=== PATIENT | female | born 1965 | race Caucasian/White ===

== ENCOUNTER 2022-11-11 12:59 | Inpatient (IN) | payer OTHER, SELFPAY ==
--- NOTE | ~2022-11-11 | XR_ITS ---
EXAMINATION: XR chest 1V portable 11/12/2022 10:32 INDICATION: Preop PROCEDURE: AP portable chest COMPARISON: No prior studies for comparison. FINDINGS: The lungs are clear. The cardiomediastinal silhouette is within normal limits. There are no pleural effusions. There is no pneumothorax suspected. IMPRESSION: 1: NO ACUTE CARDIOPULMONARY DISEASE. Reviewed, dictated and finalized at location B.
--- NOTE | ~2022-11-11 | US_ITS ---
EXAMINATION: US abdomen limited DATE: 11/11/2022 15:05 INDICATION: Right upper quadrant pain TECHNIQUE: Multiple grayscale and Doppler ultrasound images of the abdomen were obtained. COMPARISON: 06/14/2014 FINDINGS: The head and body of the pancreas are normal. The pancreatic tail is obscured by bowel gas. The liver is normal with normal echogenicity and echotexture. No surface nodularity. Normal hepatope brenda flow in the main portal vein. A stone is present in the nondistended gallbladder. The normal comm on bile duct measures 3 mm. There was no sonographic Silvestre sign. IMPRESSION: 1. Cholelithiasis without additional findings of cholecystitis. Reviewed, dictated and finalized at location F.
--- NOTE | ~2022-11-11 | CT_ITS ---
EXAMINATION: CT abdomen pelvis wo con DATE: 11/11/2022 15:28 INDICATION: Nausea and vomiting, abnormal liver function tests TECHNIQUE: Computed tomography (CT) of the abdomen and pelvis was performed without intravenous contr ast. The dose-length product (DLP) was 1404.56 mGy-cm. Automated exposure control and iterative recon struction technique were employed. COMPARISON: 09/13/2014 FINDINGS: Minimal dependent atelectasis is present in the lung bases. The heart size is normal. Cysts of the liver measure up to 8 mm. The spleen, pancreas, and adrenal glands are normal. There is wall thickening of the gallbladder with pericholecystic inflammatory change. There is been interval develo pment of a lobular contour of the right kidney with multiple areas of scarring identified. There is a 2 mm nonobstructing stone of the right kidney lower pole. The left kidney is unremarkable. No pathol ogically enlarged abdominal or pelvic lymph nodes are identified. The appendix is normal. There is an umbilical hernia containing fat. IMPRESSION: 1. CT findings consistent with acute cholecystitis. Reviewed, dictated and finalized at location F.
[2022-11-11 13:04] VITALS: BP 108/60; PULSE 104; RESP 18; TEMP 36.4; O2SAT 97
[2022-11-11 13:38] LABS: Hematocrit 38.8 % (37.0-47.0); Hemoglobin 12.8 g/dL (12.0-15.0); Mean Corpuscular Volume 87.8 fl (80-100); Mean Platelet Volume 11.3 fl (7.4-10.4); Platelet Count Result 222 k/mm3 (150-375); Red Blood Count 4.42 M/mm3 (4.2-5.4); Red Cell Distribution Width 13.4 % (11.5-14.5); White Blood Count 20.3 K/mm3 (4.5-10.0)
[2022-11-11 13:48] LABS: Band Neutrophils Percent 37 % (0-6); Lymphocytes Absolute Manual 1.01 K/mm3 (1.1-4.5); Lymphocytes Percent Manual 5 % (18-44); Monocytes Absolute Manual 1.01 K/mm3 (0.1-0.90); Monocytes Percent Manual 5 % (3-9); Neutrophils Absolute Manual 18.27 K/mm3 (1.7-7.2); Neutrophils Percent Manual 53 % (46-73); Total Cells Counted 100
[2022-11-11 13:49] LABS: Alanine Aminotransferase 303 U/L (6-35); Albumin Level 3.8 g/dL (3.5-5.1); Alkaline Phosphatase 150 U/L (38-126); Anion Gap 11 mmol/L (8-16); Aspartate Amino Transferase 140 U/L (14-36); Bilirubin,Total 6.7 mg/dL (0.2-1.3); Blood Urea Nitrogen 54 mg/dL (7-17); Calcium 8.2 mg/dL (8.4-10.2); Carbon Dioxide 23 mmol/L (22-30); Chloride 93 mmol/L (98-107); Estimated CRCL calculation 19 ml/min; Estimated Glomerular Filt Rate 11; Glucose 198 mg/dL (65-110); Lipase 31 U/L (23-300); Platelet Estimate Adequate (Adequate); Sodium 127 mmol/L (137-145)
[2022-11-11 13:50] LABS: Burr Cells 1+ (NORMAL); Schistocytes None Seen (NORMAL)
[2022-11-11 14:24] LABS: Appearance Urine Turbid (Clear); Bacteria Urine 4+ /hpf; Bilirubin Urine 3+ (Negative); Blood Urine 2+ (Negative); Color Urine Dark Yellow (Yellow); Glucose Urine UA Negative (Negative); Ketones Urine Negative (Negative); Leukocyte Esterase Ur 3+ LEU/UL (Negative); Need Manual Microscopic Reviewed; Nitrate Urine Positive (Negative); Protein Urine 2+ mg/dL (Negative); RBC Urine 21-50 /hpf (0-2); Specific Grav Ur 1.018 (1.001-1.035); Squamous Epithelial Cell Urine Many /hpf (Few); WBC Urine >100 /hpf
[2022-11-11 14:26] LABS: Add Urine Microscopic? YES
--- NOTE | 2022-11-11 14:28 | ED.NAVMDI ---
HPI - Nausea/Vomiting/Diarrhea General Chief complaint: Nausea/Vomiting/Diarrhea Stated complaint: vomiting x 5 days Time Seen by Provider: 11/11/22 13:20 Source: patient Mode of arrival: ambulatory Limitations: no limitations History of Present Illness HPI Narrative: Patient is a 56-year-old female who presents to the ED with report of nausea and vomiting. Patient reports nausea and vomiting began on Saturday last week. Denies any bad food exposure. Symptoms have since persisted. She thought she was feeling better on Saturday, but developed recurrent symptoms again this weekend. She is unable to keep down any food. She has been able to drink some water. She does report mild diarrhea, denies rectal bleeding or melena. She denies any significant abdominal pain. Denies fevers. Denies urinary complaints. Denies any other cough or cold symptoms. Related Data Home Medications Medication Instructions Recorded Confirmed albuterol sulfate 90 mcg/actuation 1 puff inhalation Q4H PRN 03/31/19 03/06/22 aerosol inhaler (ProAir HFA) ipratropium 0.5 mg-albuterol 3 mg 3 ml inhalation Q4H PRN 03/31/19 03/06/22 (2.5 mg base)/3 mL nebulization soln Allergies Allergy/AdvReac Type Severity Reaction Status Date / Time wheat Allergy Unknown Unknown Verified 03/06/22 10:19 SOY Allergy Unknown Unknown Uncoded 03/06/22 10:19 Review of Systems Review of Systems: CONSTITUTIONAL: Denies fever, chills, or sweats. ENT: Denies rhinorrhea, congestion, sore throat. CARDIOVASCULAR: Denies chest pain. RESPIRATORY: Denies cough or dyspnea. GASTROINTESTINAL: See HPI. GENITOURINARY: Denies dysuria or hematuria. SKIN: Denies rash or itching. MUSCULOSKELETAL: Denies back pain, joint pain, or myalgia. All systems reviewed & are unremarkable except as noted in HPI and below PMFSH Past Medical History Medical History (Updated 11/11/22 @ 16:22 by Denice Amador PA-C) Diabetes mellitus type 2, controlled Essential (primary) hypertension Social History Social History Years smoked: 1 Smoking status: Former smoker Tobacco type: cigarettes Second hand tobacco smoke exposure: No Smoking end date: 03/25/82 Alcohol intake: never Substance use: never Substance use type: does not use Living arrangements: with family Occupation/Education: occupation Gender identity (if verbalized by the patient): Female Sexual Orientation (if Verbalized by the Patient): Straight or Heterosexual Exam Narrative: GENERAL: Well appearing, morbidly obese with BMI of 43.1, non-toxic, in no acute distress. HEAD: Normocephalic, atraumatic. EYES: PERRLA/EOMI, mild scleral icterus. NECK: Supple. No adenopathy, no masses. RESPIRATORY: Airway patent, respirations nonlabored. Clear to auscultation bilaterally, no rales, rhonchi, wheezing. CARDIOVASCULAR: Borderline tachycardic with regular rhythm without murmurs, rubs, or gallops. Radial pulses 2+ and equal bilaterally. ABDOMINAL: Soft, no significant tenderness throughout abdomen, nondistended, no hepatosplenomegaly. Normoactive BS. MUSCULOSKELETAL: Moves all extremities. Strength/ROM intact without gross deformities. SKIN: Warm, dry, normal color. No rashes. No noticeable jaundice to skin. NEURO: A&O X3. Speech clear. Cranial nerves II-XII grossly intact. Steady gait. No ataxic movements. PSYCHIATRIC: Appropriate mood and affect. Normal interaction. Course Vital Signs Vital signs: Vital Signs Temperature 97.6 F 11/11/22 13:04 Pulse Rate 104 H 11/11/22 13:04 Respiratory Rate 18 11/11/22 13:04 Blood Pressure 108/60 11/11/22 13:04 Pulse Oximetry 97 11/11/22 13:04 Oxygen Delivery Room Air 11/11/22 13:04 Temperature 97.6 F 11/11/22 13:04 Pulse Rate 104 H 11/11/22 13:04 Respiratory Rate 18 11/11/22 13:04 Blood Pressure 108/60 11/11/22 13:04 Pulse Oximetry 97 11/11/22 13:04 Oxygen De
[2022-11-11 15:16] LABS: Lactic Acid Reflex 1.4 mmol/L (0.7-2.0)
[2022-11-11] MEDS: SODIUM CHLORIDE 0.9% IV 1,000 ML 999 ML IV CONT (15:55)
[2022-11-11] MEDS: ONDANSETRON INJ 4 MG/2 ML VIAL IV PUSH (15:58)
[2022-11-11] MEDS: POTASSIUM CHLORIDE INJ 40 MEQ in SODIUM CHLORIDE 0.9% IV 500 ML 130 MEQ IVPB (16:00)
[2022-11-11 16:30] LABS: Influenza A QL RT-PCR Negative (Negative); Influenza B QL RT-PCR Negative (Negative); SARS-CoV-2 RNA PCR Negative (Negative)
[2022-11-11] MEDS: PIPERACILLN/TAZ 3.375GM/NS50ML 3.375 GM/50 ML BAG IVPB (17:04)
[2022-11-11 17:06] VITALS: BP 111/60; PULSE 94; RESP 18; O2SAT 98
[2022-11-11 17:22] VITALS: BP 107/61; PULSE 95; RESP 18; O2SAT 99
[2022-11-11 17:51] VITALS: BMI 44.4
--- NOTE | 2022-11-11 17:51 | ADMGEN ---
This patient, Zahraa Thomas, was admitted to 2 Medical Room 257-01. Patient/family oriented to hospital policies and general routines including ID bracelet, bed and alarms, visiting hours, pain management, procedures, bathroom and other care routines, personal items, smoking policy, room service/diet, and visiting hours. Information on how to activate the Rapid Response Team has been discussed. Patient/Family are encouraged to report perceived risks to care and to ask questions if they do not understand what they are told or what they should do.
[2022-11-11 18:20] VITALS: BP 111/53; PULSE 98; RESP 18; TEMP 36.7; O2SAT 98
--- NOTE | 2022-11-11 18:21 | PM.IMHP ---
H&P: HPI History of Present Illness Date/Time: 11/11/22 18:21 Chief Complaint: Nausea vomiting diarrhea Narrative: This is a 56-year-old female patient who came to the emergency room with complaints of nausea vomiting. This started approximately last Saturday. The patient stated that she has had a previous episode in the past but it has come and gone quickly and did not last very long. The patient stated that she went out to eat on Saturday and thought that maybe she had eaten something bad causing her symptoms on Saturday. The patient thought that maybe she is feeling better by Saturday but then the symptoms recurred again this weekend. The patient was unable to keep anything down. She has been able to drink some water. She has some mild diarrhea without any noticeable blood in her stool. She denies any abdominal pain at this time. She denies any fever. Her white count was noted to be 20.3. Absolute neutrophils 18.27. Sodium 127. Potassium 3.0 and chloride 93. BUN 54 and creatinine 4.20. Blood glucose is 198. Calcium 8.2. Total bili room 6.7. AST is 140. ALT is 303. Alkaline phosphatase 150. The urine was positive for UTI as it was turbid with 2+ protein 2+ blood positive nitrates. Leukocyte esterase 3+. RBCs 21-50. WBCs greater than 100 and squamous epithelial many. And 4+ bacteria. Influenza A/B and COVID are all negative. The patient was given IV fluids, Zofran, potassium and Zosyn. Surgery has been consulted. The patient is being admitted to inpatient status on the date of service of 11/11/2022 Review of Systems Review of Systems: All systems reviewed & are unremarkable except as noted in HPI and below Constitutional: Constitutional: Reports as per HPI and Reports no additional constitutional complaints Eyes: Eyes: Reports as per HPI and Reports no additional eye complaints ENT: Reports system reviewed and no additional complaints, except as documented and Reports Normal hearing present Cardiovascular: Cardiovascular: Reports no additional cardiovascular complaints Respiratory: Respiratory: Reports no additional respiratory complaints and Reports no additional respiratory complaints Gastrointestinal: Gastrointestinal: Reports as per HPI and Reports no additional gastrointestinal complaints Musculoskeletal: Musculoskeletal: Reports no additional musculoskeletal complaints Integumentary/Breasts: Skin/Breast: Reports system reviewed and no additional complaints, except as docu and Reports as per HPI Neurologic: Reports system reviewed and no additional complaints, except as documented, Reports as per HPI and Reports Normal hearing present Psychiatric: Psychiatric: Reports no additional psychiatric complaints and Reports as per HPI Endocrine: Endocrine: Reports no additional endocrine complaints Hematologic/Lymphatic: Hematologic/Lymphatic: Reports no additional hematologic/lymphatic complaints Allergic/Immunologic: Allergic/Immunologic: Reports no additional allergic/immunologic complaints [facility] Past Medical History Medical History (Updated 11/11/22 @ 23:06 by Ivy Cullen NP) Diabetes mellitus type 2, controlled Essential (primary) hypertension Wheat allergy Surgical History Surgical History (Updated 11/11/22 @ 23:01 by Ivy Cullen NP) History of extraction of renal calculus Family History Family History (Updated 11/11/22 @ 23:02 by Ivy Cullen NP) Other Adopted Social History Social History (Updated 11/11/22 @ 23:03 by Ivy Cullen NP) Social History: 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 She has 1 son and is . She states that she has never used tobacco. She denies any marijuana alcohol or other substances. Code status full code Years smoked: 1 Smoking status: Never smoker Tobacco type: cigarettes Second hand tobacco smoke exposure: No Smoking end date: 03/25/82 Alcohol intake: never Substance use:
[2022-11-11 20:00] VITALS: PULSE 98; RESP 18; O2SAT 98
[2022-11-11] MEDS: SODIUM CHLORIDE 0.9% IV 1,000 ML 100 ML IV CONT (20:51)
[2022-11-11 21:01] VITALS: PULSE 93; RESP 16; TEMP 36.4; O2SAT 99
[2022-11-11] MEDS: PIPERACILLIN/TAZ 2.25G/NS 50ML 2.25 GM/50 ML BAG IVPB (23:49)
[2022-11-12] VITALS (14 sets, daily range): BP systolic 109–148; BP diastolic 55–77; PULSE 60–94; RESP 12–16; TEMP 35.7–36.8; O2SAT 96–100; BMI 44.4
[2022-11-12 00:21] LABS: Anion Gap 9 mmol/L (8-16); Blood Urea Nitrogen 62 mg/dL (7-17); Calcium 7.6 mg/dL (8.4-10.2); Carbon Dioxide 21 mmol/L (22-30); Chloride 100 mmol/L (98-107); Estimated CRCL calculation 18 ml/min; Estimated Glomerular Filt Rate 10; Glucose 126 mg/dL (65-110); Potassium 3.3 mmol/L (3.4-5.0); Sodium 130 mmol/L (137-145)
[2022-11-12] MEDS: POTASSIUM CHLORIDE INJ 40 MEQ in SODIUM CHLORIDE 0.9% IV 500 ML 130 MEQ IVPB (01:44)
[2022-11-12 06:35] LABS: Hematocrit 36.6 % (37.0-47.0); Hemoglobin 11.5 g/dL (12.0-15.0); Mean Corpuscular HGB Conc 31.4 g/dl (32-36); Mean Corpuscular Hemoglobin 28.8 pg (26-34); Mean Corpuscular Volume 91.7 fl (80-100); Mean Platelet Volume 11.8 fl (7.4-10.4); Platelet Count Result 202 k/mm3 (150-375); Red Blood Count 3.99 M/mm3 (4.2-5.4); White Blood Count 16.5 K/mm3 (4.5-10.0)
[2022-11-12] MEDS: PIPERACILLIN/TAZ 2.25G/NS 50ML 2.25 GM/50 ML BAG IVPB ×4 (06:52→23:36)
[2022-11-12] MEDS: SODIUM CHLORIDE 0.9% IV 1,000 ML 100 ML IV CONT ×2 (06:52→09:24)
[2022-11-12] MEDS: LEVOTHYROXINE SODIUM 125 MCG TABLET PO (06:53)
[2022-11-12 06:59] LABS: Lactic Acid Reflex 0.8 mmol/L (0.7-2.0)
[2022-11-12 07:02] LABS: Hemoglobin A1C 8.1 % (<5.7)
[2022-11-12 07:07] LABS: Alanine Aminotransferase 250 U/L (6-35); Albumin Level 3.2 g/dL (3.5-5.1); Alkaline Phosphatase 134 U/L (38-126); Anion Gap 11 mmol/L (8-16); Aspartate Amino Transferase 97 U/L (14-36); Bilirubin,Total 4.5 mg/dL (0.2-1.3); Blood Urea Nitrogen 67 mg/dL (7-17); Calcium 7.7 mg/dL (8.4-10.2); Carbon Dioxide 19 mmol/L (22-30); Chloride 103 mmol/L (98-107); Estimated CRCL calculation 17 ml/min; Estimated Glomerular Filt Rate 9; Glucose 128 mg/dL (65-110); Magnesium 2.3 mg/dL (1.6-2.3); Potassium 4.2 mmol/L (3.4-5.0); Sodium 133 mmol/L (137-145)
[2022-11-12 07:37] LABS: Band Neutrophils Percent 22 % (0-6); Burr Cells 1+ (NORMAL); Eosinophils Absolute Manual 0.33 K/mm3 (0.02-0.5); Eosinophils Percent Manual 2 % (0-4); Lymphocytes Absolute Manual 1.15 K/mm3 (1.1-4.5); Metamyelocytes Percent 2 %; Monocytes Absolute Manual 0.33 K/mm3 (0.1-0.90); Monocytes Percent Manual 2 % (3-9); Neutrophils Absolute Manual 14.35 K/mm3 (1.7-7.2); Neutrophils Percent Manual 65 % (46-73); Platelet Estimate Adequate (Adequate); Schistocytes None Seen (NORMAL); Total Cells Counted 100
[2022-11-12 07:38] LABS: Platelet Clumps Present
[2022-11-12 08:49] LABS: Free T4 Free Thyroxine Reflex 0.82 ng/dL (0.78-2.19)
--- NOTE | 2022-11-12 08:55 | ECG_ITS ---
Measurements Intervals [place] Rate: 79 P: 62 CT: 158 QRS: 40 QRSD: 99 T: 52 QT: 405 QTc: 466 Interpretive Statements SINUS RHYTHM NORMAL ELECTROCARDIOGRAM NO PREVIOUS ECG AVAILABLE FOR COMPARISON Electronically Signed On 11-12-2022 12:07:22 CDT by Chris Roberson M.D.
--- NOTE | 2022-11-12 09:31 | PM.IMPN ---
Progress Note: A&P Assessment and Plan (1) Sepsis: Qualifiers: Sepsis acute organ dysfunction status: unspecified Sepsis type: sepsis due to unspecified organism Qualified Code(s): A41.9 - Sepsis, unspecified organism Code(s): A41.9 - Sepsis, unspecified organism Status: Acute Assessment and Plan: Patient has both acute cholecystitis and acute urinary tract infection with new onset acute renal failure without hypotension. She has received IV fluids and is on IV antibiotics. Plan is to go to the operating room for cholecystectomy and we will continue to treat UTI. (2) Acute cholecystitis: Code(s): K81.0 - Acute cholecystitis Status: Acute Assessment and Plan: Patient to go to the operating room per Dr. Austin today (3) Acute renal failure: Qualifiers: Acute renal failure type: unspecified Qualified Code(s): N17.9 - Acute kidney failure, unspecified Code(s): N17.9 - Acute kidney failure, unspecified Status: Acute Assessment and Plan: Nephrology has been consulted, worsening acute renal failure despite fluid administration. Initially thought to be related to dehydration and vomiting. (4) Urinary tract infection: Qualifiers: Hematuria presence: with hematuria Urinary tract infection type: acute cystitis Qualified Code(s): N30.01 - Acute cystitis with hematuria Code(s): N39.0 - Urinary tract infection, site not specified Status: Acute Assessment and Plan: Continue to treat with IV antibiotics pending cultures (5) Hyponatremia: Code(s): E87.1 - Hypo-osmolality and hyponatremia Status: Acute Assessment and Plan: Acute hyponatremia noted 127 on admission. Likely related to dehydration acute renal failure. Nephrology consulted. Appreciate all recommendations and considerations. (6) Essential (primary) hypertension: Code(s): I10 - Essential (primary) hypertension Status: Acute Assessment and Plan: History of hypertension, well controlled on the lower side of normal while holding amlodipine and losartan. (7) Hypothyroidism, unspecified: Code(s): E03.9 - Hypothyroidism, unspecified Status: Chronic Assessment and Plan: TSH significantly elevated. Reflex T4 normal. Continue levothyroxine. Plan Operating room for cholecystectomy today Nephrology consult for acute renal failure and hyponatremia. Continue IV antibiotics. Diet per surgery, will recommend renal diet Renal function panel twice daily until stabilized Time Spent With Patient Time with patient: Greater than 35 minutes Subjective Date/time seen: 11/12/22 09:31 Interval history: Patient was admitted for findings sepsis and acute cholecystitis as well as acute renal failure. Despite fluid resuscitation renal failure continued worsen. General surgery and Nephrology consulted. Patient to go to the operating room for cholecystectomy. Patient states that she came to the hospital for persistent nausea and vomiting that gets better when she does not eat solid food but then returns whenever she eats again. This is been going on for about week. Patient denies current abdominal pain or vomiting still has nausea. She denies chest pain shortness of breath fever chills cough constipation or diarrhea. Review of Systems Review of Systems: All systems reviewed & are unremarkable except as noted in HPI and below (HPI and those items noted below) Constitutional: Constitutional: Denies chills and Denies fever(s) Cardiovascular: Cardiovascular: Denies chest pain, Denies diaphoresis, Denies dyspnea and Denies paroxysmal nocturnal dyspnea Respiratory: Respiratory: Denies chest congestion, Denies cough and Denies dyspnea Integumentary/Breasts: Skin/Breast: Denies lesions and Denies rash Exam Narrative: GENERAL: Generally well appearing, obese, alert and oriented, in no apparent distress. She is pleasant and
[2022-11-12 10:41] LABS: Total Triiodothyronine (T3) 0.39 NG/ML (0.97-1.69)
--- NOTE | 2022-11-12 11:09 | PM.CNGS ---
Assessment and Plan Assessment and plan (1) Cholelithiasis and cholecystitis with obstruction: Code(s): K80.19 - Calculus of gallbladder with other cholecystitis with obstruction Status: Acute Assessment and Plan: Despite the absence of abdominal pain, the imaging and the abnormal bilirubin and liver enzymes strongly suggest cholecystitis is the cause of her vomiting and sepsis. It is also likely the cause of her acute kidney injury. I have recommended going ahead with laparoscopic cholecystectomy today. I discussed the procedure, the risks, the benefits with the patient. She is familiar with the procedure as her son has had this performed. All questions were answered. She understands and agrees to go ahead. We will hold off on intraoperative cholangiogram as the patient has a rising creatinine and severe YANICK. (2) Acute renal failure: Qualifiers: Acute renal failure type: unspecified Qualified Code(s): N17.9 - Acute kidney failure, unspecified Code(s): N17.9 - Acute kidney failure, unspecified Status: Acute Assessment and Plan: Worse this morning, bolus normal saline and increase IV fluids to 200 an hour. Nephrology consultation requested. Continue to monitor closely. (3) Hyperbilirubinemia: Code(s): E80.6 - Other disorders of bilirubin metabolism Status: Acute Assessment and Plan: No biliary ductal dilatation, likely a consequence of cholecystitis. (4) Urinary tract infection: Qualifiers: Hematuria presence: with hematuria Urinary tract infection type: acute cystitis Qualified Code(s): N30.01 - Acute cystitis with hematuria Code(s): N39.0 - Urinary tract infection, site not specified Status: Acute Assessment and Plan: Culture pending but strongly suspicious by urinalysis. Zosyn antibiotics should cover. (5) Sepsis: Qualifiers: Sepsis acute organ dysfunction status: unspecified Sepsis type: sepsis due to unspecified organism Qualified Code(s): A41.9 - Sepsis, unspecified organism Code(s): A41.9 - Sepsis, unspecified organism Status: Acute Assessment and Plan: As noted in HPI. (6) Hypothyroidism, unspecified: Code(s): E03.9 - Hypothyroidism, unspecified Status: Chronic Assessment and Plan: TSH level markedly elevated. Further studies pending History of Present Illness Consult details Consult date: 11/12/22 Reason for consult: gallstones Requesting physician: Denice Amador, BRIEN Narrative: Patient is a 56-year-old woman whom I know from cholecystectomy performed on her son. The patient went out to eat a week ago today. This was at night. She had a lot of vomiting the following day and really no appetite. Trying to eat only provoked more vomiting. So the next 2 days, Saturday and last week, she ate next to nothing and was feeling better. She went to work on Saturday and then tried again to eat on Saturday. Saturday she had worsening vomiting. This persisted and she came to the emergency room yesterday. Interestingly, she really did not have any abdominal pain other than feeling of a rock being in her epigastric area right before she vomits. She did not really have any abdominal tenderness in the emergency room but lab work showedEvidence of a severe infection and sepsis. Her white count was over 20,000 with a marked left shift. She also had a significant increase in her serum creatinine which is normally less than 1 was now 4.2. She had elevated liver function tests with a bilirubin of 6.7. Lipase was normal. Lactate was normal at 1.4. Her urinalysis was suspicious for a UTI. Cultures were done but are pending. Patient was seen earlier this morning and continues to have no abdominal pain at present. She has been NPO and, in her mind, this explains why she has no further vomiting. Her labs look better the this morning with her white blood cell count decreas
--- NOTE | 2022-11-12 13:35 | PC.NURSE ---
To OR via stretcher. Voiding without difficulty.
--- NOTE | 2022-11-12 13:37 | PC.NURSE ---
Report called to Lauryn miller.
[2022-11-12] MEDS: LACTATED RINGERS 1,000 ML 30 ML IV CONT ×2 (14:10→16:51)
--- NOTE | 2022-11-12 14:12 | WPDANESEPPF ---
Anes - Initial Pre Proc Eval Procedure: Operation Date: 11/12/22 15:00 Proposed Procedures p Laparoscopic Cholecystectomy - Zach Austin MD Date/Time: 11/12/22 14:12 Surgeon: Jacky Ospina MD Pre Op Diagnosis: Acute Cholecystitis/Sepsis/UTI/ARFHyperbilirubinem Patient Data Age: 56 Gender: F Height: 1.7 m Weight: 128.5 kg Last Vital Signs Temp 36.8 C 11/12/22 13:33 Pulse 87 11/12/22 13:33 Resp 14 11/12/22 13:33 BP 127/65 11/12/22 13:33 Pulse Ox 97 11/12/22 13:33 O2 Del Method Room Air 11/12/22 07:50 Allergies Allergy/AdvReac Type Severity Reaction Status Date / Time wheat Allergy Unknown Unknown Verified 11/11/22 18:11 SOY Allergy Unknown Unknown Uncoded 11/11/22 18:11 Home Medications Medication Instructions Recorded Confirmed Type amlodipine 5 mg tablet 5 mg PO DAILY #90 tabs 11/01/20 11/11/22 Rx losartan 25 mg tablet 25 mg PO DAILY #90 tabs 06/15/22 11/11/22 Rx levothyroxine 125 mcg tablet 125 mcg PO DAILY 11/11/22 11/11/22 History Laboratory Tests 11/11/22 11/11/22 11/11/22 13:55 14:46 15:41 WBC RBC Hgb Hct MCV MCH MCHC RDW Plt Count MPV Immature Gran % (Auto) Neut % (Auto) Lymph % (Auto) [place] % (Auto) Eos % (Auto) Baso % (Auto) Lymph # (Auto) [place] # (Auto) Eos # (Auto) Baso # (Auto) Abs Immat Gran (auto) Absolute Neuts (auto) Absolute Nucleated RBC Total Counted Neutrophils % (Manual) Band Neutrophils % Lymphocytes % (Manual) Monocytes % (Manual) Eosinophils % (Manual) Metamyelocytes % Nucleated RBC % Abs Neuts (Manual) Abs Lymphs (Manual) Abs Monocytes (Manual) Absolute Eos (Manual) Platelet Estimate Clumped Platelets [place] Cells Schistocytes Sodium Potassium Chloride Carbon Dioxide Anion Gap BUN Creatinine Estim Creat Clear Calc Estimated GFR Glucose Hemoglobin A1c Lactic Acid 1.4 mmol/L (0.7-2.0) Calcium Magnesium Total Bilirubin AST ALT Alkaline Phosphatase Total Protein Albumin TSH (Reflex) Free T4 Total T3 Urine Color Dark yellow (Yellow) Urine Appearance Turbid H (Clear) Urine pH 5.0 (5.0-9.0) Ur Specific [place] 1.018 (1.001-1.035) Urine Protein 2+ H mg/dL (Negative) Urine Glucose (UA) Negative mg/dL (Negative) Urine Ketones Negative mg/dL (Negative) Ur Blood (Man) 2+ H (Negative) Urine Nitrate Positive H (Negative) Urine Bilirubin 3+ H (Negative) Urine Urobilinogen 1.0 mg/dL (<2.0) Add Ur Microanalysis Reviewed Leukocyte Esterase Rfl 3+ H KATHERINE/UL (Negative) Urine RBC 21-50 H /hpf (0-2) Urine WBC >100 H /hpf Ur Squamous Epith Cells Many H /hpf (Few) Urine Bacteria 4+ H /hpf Urine Casts 11-20 Influenza A (RT-PCR) Negative (Negative) Influenza B (RT-PCR) Negative (Negative) SARS-CoV-2 RNA (RT-PCR) Negative (Negative) Blood Type Antibody Screen 11/11/22 11/12/22 11/12/22 23:25 05:20 10:18 WBC 16.5 H K/mm3 (4.5-10.0) RBC 3.99 L M/mm3 (4.2-5.4) Hgb 11.5 L g/dL (12.0-15.0) Hct 3
--- NOTE | 2022-11-12 14:30 | WPDHPUPDATE1 ---
History and Physical Update Update Date/Time: 11/12/22 14:30 History and Physical has been reviewed, including an updated exam of the patient. There are NO changes in the patient's condition. Risks, benefits, and alternatives have been discussed and questions answered. Patient agrees to proceed with procedure.
[2022-11-12] MEDS: BUPIVACAINE/EPINEPHRINE 0.5% 50 ML VIAL 30 ML INFILTRATE (14:59)
--- NOTE | 2022-11-12 16:54 | W.PM.PROC2 ---
Procedure Note - Detailed Date of Procedure 11/12/22 Pre-op Diagnosis Acute Cholecystitis with gallstones Post-op Diagnosis Other (Gangrenous acute cholecystitis with gallstones) Procedure Performed Laparoscopic cholecystectomy Surgeon Zach Austin MD [employer] Supply Supervisor Alessandro Anesthesia General and Local (0.5% Marcaine with epinephrine) Indications Patient has had protracted vomiting for a few days. She came to the emergency room yesterday with evidence of sepsis hyperbilirubinemia and acute cholecystitis on imaging. She also has gallstones. She also has acute kidney injury. She is started on antibiotics and her elevated LFTs improved slightly. Her creatinine continues to rise. She is taken to surgery now for laparoscopic cholecystectomy. Findings Severe gangrenous acute cholecystitis was noted. Fatty liver was noted. There was no biliary ductal dilatation. Gallbladder was hypervascular and the dissection involved much more bleeding than usual. We lost 150 cc which is 5 times as much as is typically lost even with difficult gallbladder surgery. The surgery took nearly 2 hours which is 3 times longer than usual. The surgery was exceptionally difficult. A drain was required postoperatively. Description of Procedure The patient was taken to surgery and induced into general anesthesia. The abdomen is prepped and draped. Trocars were placed in usual fashion using [employer] optical trocars and a 5 mm camera. With the trocars in place and insufflation adequate we took down some adhesions between the liver and the anterior abdominal wall. We then freed the gallbladder from some of its upper adhesions. The gallbladder was then decompressed with a laparoscopic aspirator. Gallbladder was quite hyperemic and had a greenish hue consistent with gangrenous change. The wall was very thick. It was very hypervascular as well. We then retracted the gallbladder anterosuperiorly in took down some additional adhesions so that the area of the infundibulum could be exposed. Then dissection was carried out in the cholecystohepatic triangle. Due to the severe inflammation and the fatty liver which was not only easily injured but also wrapped itself around the lower aspect of the gallbladder, there was quite a bit of bleeding during the dissection. Gallbladder wall was very hypervascular due to the inflammation. Suction was used and we slowly dissected out the cystic duct and cystic artery. The gallbladder was dissected off the liver at its lower 3rd. Critical view was achieved. I then securely clipped and divided the cystic artery. I dissected a bit more of the cystic duct. I was able to see the junction of the cystic duct and the common bile duct. I securely clipped and divided the cystic duct. I then continued the dissection of the gallbladder freeing it from the gallbladder fossa in the liver. This was very bloody. The tissue planes between the liver and the gallbladder were fused. Some raw liver surface was dissected. We persevered and used suction with both blunt and sharp dissection with the cautery. Eventually the gallbladder was freed entirely from the liver. Gallbladder was placed in an Endo-Catch bag. It was retrieved through the 10 11 epigastric trocar site. I had to enlarge the skin incision and then I had to dilate the fascia at the site of gallbladder extraction. Gallbladder was eventually removed. It had a very thickened wall and required a larger opening to be extricated. Once the gallbladder was removed, I replaced the 10 11 trocar. We used a towel clip to occlude the skin and subcutaneous so that we could reinsufflated. We reinsufflated and then irrigated and suctioned the right upper quadrant. Cautery as well as 2 applications of Surgiflo were used on the gallbladder fossa to achieve good hemostasis. Eventually that was accomplished. At this point, there was no evidence of bleeding or bile leakage. A 19 [place] drain was placed t
--- NOTE | 2022-11-12 18:00 | PC.NURSE ---
Returned from OR via stretcher.
[2022-11-12] MEDS: SODIUM CHLORIDE 0.9% IV 1,000 ML 150 ML IV CONT ×2 (18:13→23:38)
[2022-11-12 18:45] LABS: Albumin Level 3.7 g/dL (3.5-5.1); Anion Gap 21 mmol/L (8-16); Blood Urea Nitrogen 67 mg/dL (7-17); Calcium 8.3 mg/dL (8.4-10.2); Carbon Dioxide 12 mmol/L (22-30); Chloride 103 mmol/L (98-107); Estimated CRCL calculation 16 ml/min; Estimated Glomerular Filt Rate 9; Glucose 224 mg/dL (65-110); Potassium 4.3 mmol/L (3.4-5.0); Sodium 136 mmol/L (137-145)
[2022-11-12] MEDS: FAMOTIDINE 20 MG/2 ML VIAL IV PUSH (20:03)
[2022-11-13 05:33] LABS: Basophils Absolute Auto 0.1 K/mm3 (0.0-0.1); Basophils Percent Auto 0.5 % (0.2-1.2); Eosinophils Percent Auto 0.1 % (0-4.4); Immature Granulocyte Absolute 0.47 K/mm3 (0.00-0.031); Lymphocytes Absolute Auto 1.25 K/mm3 (0.9-3.2); Lymphocytes Percent Auto 8.1 % (18.3-44.2); Mean Corpuscular HGB Conc 31.4 g/dl (32-36); Mean Corpuscular Hemoglobin 28.6 pg (26-34); Mean Corpuscular Volume 90.9 fl (80-100); Mean Platelet Volume 11.6 fl (7.4-10.4); Monocytes Absolute Auto 0.7 K/mm3 (0.1-0.6); Monocytes Percent Auto 4.3 % (2.6-8.5); Platelet Count Result 218 k/mm3 (150-375); Red Blood Count 3.85 M/mm3 (4.2-5.4); Red Cell Distribution Width 14.1 % (11.5-14.5); White Blood Count 15.5 K/mm3 (4.5-10.0)
[2022-11-13 05:45] LABS: Alanine Aminotransferase 281 U/L (6-35); Albumin Level 3.1 g/dL (3.5-5.1); Alkaline Phosphatase 149 U/L (38-126); Anion Gap 14 mmol/L (8-16); Aspartate Amino Transferase 112 U/L (14-36); Bilirubin Direct 0.2 mg/dL (0-0.3); Bilirubin,Total 2.2 mg/dL (0.2-1.3); Blood Urea Nitrogen 69 mg/dL (7-17); Calcium 7.7 mg/dL (8.4-10.2); Carbon Dioxide 16 mmol/L (22-30); Chloride 106 mmol/L (98-107); Estimated CRCL calculation 17 ml/min; Estimated Glomerular Filt Rate 9; Glucose 206 mg/dL (65-110); Phosphorus 5.2 mg/dL (2.5-4.5); Potassium 4.3 mmol/L (3.4-5.0); Sodium 136 mmol/L (137-145)
[2022-11-13] MEDS: LEVOTHYROXINE SODIUM 125 MCG TABLET PO (06:13)
[2022-11-13] MEDS: PIPERACILLIN/TAZ 2.25G/NS 50ML 2.25 GM/50 ML BAG IVPB ×4 (06:13→23:05)
[2022-11-13 06:20] VITALS: BP 138/70; PULSE 84; RESP 16; TEMP 36.5; O2SAT 95
--- NOTE | 2022-11-13 07:18 | PM.PNGS ---
Progress Note: A&P Assessment and Plan (1) Cholelithiasis and cholecystitis with obstruction: Code(s): K80.19 - Calculus of gallbladder with other cholecystitis with obstruction Status: Acute Assessment and Plan: Doing well postop day 1. Will start full liquids. Up walking. Continue to monitor closely with labs and clinical exam. Continue IV antibiotics. (2) Sepsis: Qualifiers: Sepsis acute organ dysfunction status: unspecified Sepsis type: sepsis due to unspecified organism Qualified Code(s): A41.9 - Sepsis, unspecified organism Code(s): A41.9 - Sepsis, unspecified organism Status: Acute Assessment and Plan: Blood cultures positive for Gram-negative [place]. Pending sensitivity. (3) Acute renal failure: Qualifiers: Acute renal failure type: unspecified Qualified Code(s): N17.9 - Acute kidney failure, unspecified Code(s): N17.9 - Acute kidney failure, unspecified Status: Acute Assessment and Plan: Creatinine slightly lower today at 4.8 (4) Urinary tract infection: Qualifiers: Hematuria presence: with hematuria Urinary tract infection type: acute cystitis Qualified Code(s): N30.01 - Acute cystitis with hematuria Code(s): N39.0 - Urinary tract infection, site not specified Status: Acute Assessment and Plan: Continue antibiotics Subjective Subjective Date/Time Seen: 11/13/22 07:18 Post Op day: 1 Patient reports: no new complaints, feels better, pain is less, no bowel movement and afebrile Exam Const: General: comfortable and no acute distress Nutritional Appearance: obese Orientation/consciousness: patient oriented x3 GI: Inspection: incision (Clean and dry), obesity and other (FAB serosanguineous) GI Palp: Yes Soft to palpation, Yes Tenderness to palpation present (GI), No Guarding due to palpation present (GI) and No Rebound tenderness present Neuro: General: patient oriented x3 and no focal motor deficits Extrem: General: no calf tenderness and no edema Psych: Affect: normal affect Insight: Good insight present (Psych) Judgement: Good judgement present (Psych) Objective Data Vital Signs Vital Signs: Vital Signs - 24 hr 11/12/22 07:50 11/12/22 13:33 11/12/22 16:51 Temperature 36.8 C 36.5 C Pulse Rate 87 94 Respiratory Rate 16 14 16 Blood Pressure 127/65 130/63 Pulse Oximetry 96 97 100 Oxygen Delivery Room Air Simple Face Mask Oxygen Flow Rate 8 11/12/22 17:00 11/12/22 17:12 11/12/22 17:15 Temperature Pulse Rate 85 88 Respiratory Rate 12 16 Blood Pressure 113/64 130/74 Pulse Oximetry 100 100 100 Oxygen Delivery Simple Face Mask Room Air Room Air Oxygen Flow Rate 8 11/12/22 17:30 11/12/22 17:45 11/12/22 18:10 Temperature 35.9 C L Pulse Rate 89 88 86 Respiratory Rate 12 14 16 Blood Pressure 123/66 138/60 137/77 Pulse Oximetry 99 98 97 Oxygen Delivery Room Air Room Air Oxygen Flow Rate 11/12/22 18:00 11/12/22 18:32 11/12/22 20:09 Temperature 35.7 C L 36.6 C Pulse Rate 86 67 Respiratory Rate 16 14 16 Blood Pressure 148/69 H 141/59 H Pulse Oximetry 97 98 97 Oxygen Delivery Room Air Oxygen Flow Rate 11/12/22 23:38 11/13/22 06:20 Temperature 36.6 C 36.5 C Pulse Rate 60 84 Respiratory Rate 16 16 Blood Pressure 140/77 138/70 Pulse Oximetry 98 95 Oxygen Delivery Oxygen Flow Rate Intake/Output Intake/Output: Intake & Output 11/10/22 11/11/22 11/12/22 11/13/22 23:59 23:59 23:59 23:59 Intake Total 1050 2792 150 Output Total 20 30 Balance 1050 2772 120 Meds/Results Medications: Active Medications Generic Name Dose Route Start Last Admin Trade Name Michelle PRN Reason Stop Dose Admin Acetaminophen 500 mg 11/12/22 17:50 Acetaminophen 500 Mg Tablet PO Q6H PRN Mild Pain (1-3) or Fever Hydrocodone Bitart/Acetaminophen 1 tab 11/12/22 17:50 Hydrocodone/Acetaminophen (*Crx) 5-325 Mg Tablet PO
[2022-11-13 07:35] VITALS: BP 132/78; PULSE 78; RESP 18; TEMP 35.8; O2SAT 99
[2022-11-13] MEDS: SODIUM CHLORIDE 0.9% IV 1,000 ML 150 ML IV CONT ×3 (08:42→23:05)
[2022-11-13 08:43] VITALS: RESP 18; O2SAT 95
[2022-11-13] MEDS: FAMOTIDINE 20 MG/2 ML VIAL IV PUSH ×2 (08:43→20:04)
[2022-11-13] MEDS: ENOXAPARIN 40 MG/0.4 ML SYRINGE SUB-Q (08:43)
[2022-11-13 09:03] VITALS: O2SAT 95
--- NOTE | 2022-11-13 09:58 | PM.IMPN ---
Progress Note: A&P Assessment and Plan (1) Sepsis: Qualifiers: Sepsis acute organ dysfunction status: unspecified Sepsis type: sepsis due to unspecified organism Qualified Code(s): A41.9 - Sepsis, unspecified organism Code(s): A41.9 - Sepsis, unspecified organism Status: Acute Assessment and Plan: 11/12: Patient has both acute cholecystitis and acute urinary tract infection with new onset acute renal failure without hypotension. She has received IV fluids and is on IV antibiotics. Plan is to go to the operating room for cholecystectomy and we will continue to treat UTI. 11/13: Gram negative bacilli in 2/2 blood cultures, continue IV antibiotics. (2) Acute cholecystitis: Code(s): K81.0 - Acute cholecystitis Status: Acute Assessment and Plan: 11/12: Patient to go to the operating room per Dr. Austin today 11/13: POD 1 s/p lap joanne, doing well (3) Acute renal failure: Qualifiers: Acute renal failure type: unspecified Qualified Code(s): N17.9 - Acute kidney failure, unspecified Code(s): N17.9 - Acute kidney failure, unspecified Status: Acute Assessment and Plan: 11/12: Nephrology has been consulted, worsening acute renal failure despite fluid administration. Initially thought to be related to dehydration and vomiting. 11/13: Nephrology saw patient today, will monitor renal function for improvement. (4) Urinary tract infection: Qualifiers: Hematuria presence: with hematuria Urinary tract infection type: acute cystitis Qualified Code(s): N30.01 - Acute cystitis with hematuria Code(s): N39.0 - Urinary tract infection, site not specified Status: Acute Assessment and Plan: Continue to treat with IV antibiotics pending cultures 11/13: Urine culture no growth. (5) Hyponatremia: Code(s): E87.1 - Hypo-osmolality and hyponatremia Status: Acute Assessment and Plan: Acute hyponatremia noted 127 on admission. Likely related to dehydration acute renal failure. Nephrology consulted. Appreciate all recommendations and considerations. 11/13: Improving, 133 today. 9 point rise in 2 days without neurologic complaints. Nephrology on board. Appreciate IV fluid and other recommendations. (6) Essential (primary) hypertension: Code(s): I10 - Essential (primary) hypertension Status: Acute Assessment and Plan: History of hypertension, well controlled on the lower side of normal while holding amlodipine and losartan. 11/13: Stable, blood pressure reviewed on 11/13 (7) Hypothyroidism, unspecified: Code(s): E03.9 - Hypothyroidism, unspecified Status: Chronic Assessment and Plan: TSH significantly elevated. Reflex T4 normal. Continue levothyroxine. Plan Nephrology consult for acute renal failure and hyponatremia. Continue IV antibiotics. Diet per surgery, will recommend renal diet Renal function panel twice daily until stabilized Time Spent With Patient Time with patient: 25 - 35 minutes Subjective Date/time seen: 11/13/22 09:58 Interval history: Patient was admitted for findings sepsis and acute cholecystitis as well as acute renal failure. Despite fluid resuscitation renal failure continued worsen. General surgery and Nephrology consulted. Patient to go to the operating room for cholecystectomy. Patient states that she came to the hospital for persistent nausea and vomiting that gets better when she does not eat solid food but then returns whenever she eats again. This is been going on for about week. Patient denies current abdominal pain or vomiting still has nausea. She denies chest pain shortness of breath fever chills cough constipation or diarrhea. 11/13: Patient underwent laparoscopic cholecystectomy yesterday is feeling well today from this. She is ambulatory without assistance. Blood cultures positive 2/2 bottles Gram-negative bacilli. Patient reports urinati
--- NOTE | 2022-11-13 10:30 | PM.CNNEP ---
Assessment and Plan Assessment and plan (1) YANICK (acute kidney injury): Code(s): N17.9 - Acute kidney failure, unspecified Status: Acute Assessment and Plan: normal creatinine at baseline suspect multifactorial ATN: acute infection (cholecystitis + UTI) prerenal factors (N/V + poor oral intake) ARB use prior to admission slow improvement noted (creatinine appears to have peaked/plateaued at 5.10mg/dl) CT imaging with interval development of a lobular contour of the right kidney with multiple areas of scarring identified. There is a 2 mm nonobstructing stone of the right kidney lower pole. The left kidney is unremarkable. hold off of urine testing since renal function improving continues IVFs and IV antibiotics hold losartan for now follow trend of repeat labs and UOP (2) Acute cholecystitis: Code(s): K81.0 - Acute cholecystitis Status: Acute Assessment and Plan: as noted by admission imaging s/p laproscopic cholecystectomy (on 11/12/22) -- operative note reviewed General Surgery following follow culture data continue antibiotics advance diet as tolerated (3) Urinary tract infection: Qualifiers: Hematuria presence: with hematuria Urinary tract infection type: acute cystitis Qualified Code(s): N30.01 - Acute cystitis with hematuria Code(s): N39.0 - Urinary tract infection, site not specified Status: Acute Assessment and Plan: admission UA suggestive on antibiotics follow culture data (4) Essential (primary) hypertension: Code(s): I10 - Essential (primary) hypertension Status: Acute Assessment and Plan: BP soft so antihypetensive medications on hold follow trend of hemodynamics (5) Diabetes mellitus type 2, controlled: Code(s): E11.9 - Type 2 diabetes mellitus without complications Status: Acute Assessment and Plan: follow accu-cheks glycemic control per hospitalists I will continue follow patient with you while she remains hospitalized and make further recommendations as needed. Thank you for allowing me to participate in the care of this patient. History of Present Illness Reason for Consult Consult date: 11/13/22 Reason for consult: acute renal failure Chief Complaint Chief complaint: Acute Cholecystitis/Sepsis History of Present Illness Narrative: The patient is a 56-year-old female with a past medical history as outlined below who presented to [facility] Emergency room with complaints of nausea and vomiting. The symptoms of nausea and vomiting started about a week ago. Initially, the day before the symptoms started, the patient when out for a meal and thought that maybe this was a side effect from that restaurant outing. Initially, however, the thought she was feeling better but then the symptoms recurred over the weekend. She reports an inability to keep anything down due to the nausea and vomiting although she reports that she has been able to take some sips of water. Despite the nausea and vomiting, she denied any abdominal pain, hematochezia, or melena. She reports no fevers either but due to the persistence of the symptoms the time frame mentioned, she presented to the ER for further assessment. Workup and evaluation in the emergency room demonstrated the patient to be hemodynamically stable but in mild distress secondary to the nausea and vomiting. Routine blood test demonstrated elevated white blood cell count of 20.3 in association with a mild left shift. Her chemistry was notable for several electrolyte abnormalities including hyponatremia, hypokalemia, and elevated BUN and creatinine of 54 and 4.2, respectively. Her LFTs were also abnormal and a urinalysis was highly suggestive of urinary tract infection 2+ protein, 2+ blood, positive nitrates, 3+ leukocyte esterase, greater than one white blood cells 4+ bacteria. Influenza A/B as well as COVID-19 testin
[2022-11-13 11:35] VITALS: BP 142/73; PULSE 80; RESP 18; TEMP 36.4; O2SAT 99
--- NOTE | 2022-11-13 13:08 | WPDANESPN ---
Anes - Prog Note Post-Op Date/Time: 11/13/22 13:08 Vital Signs: Last Vital Signs Temp 35.8 C L 11/13/22 07:35 Pulse 78 11/13/22 07:35 Resp 18 11/13/22 08:43 BP 132/78 11/13/22 07:35 Pulse Ox 95 11/13/22 09:03 O2 Del Method Room Air 11/13/22 09:03 O2 Flow Rate 8 11/12/22 17:00 Pain Score (VAS): 2 I/O: Intake & Output 11/12/22 11/13/22 11/13/22 23:59 07:59 15:59 Intake Total 1592 1150 120 Output Total 20 30 Balance 1572 1120 120 Laboratory Tests 11/13/22 05:04 11/13/22 05:04 11/12/22 11/13/22 18:28 05:04 WBC 15.5 H RBC 3.85 L Hgb 11.0 L Hct 35.0 L MCV 90.9 MCH 28.6 MCHC 31.4 L RDW 14.1 Plt Count 218 MPV 11.6 H Immature Gran % (Auto) 3.0 H Neut % (Auto) 84.0 H Lymph % (Auto) 8.1 L [place] % (Auto) 4.3 Eos % (Auto) 0.1 Baso % (Auto) 0.5 Lymph # (Auto) 1.25 [place] # (Auto) 0.7 H Eos # (Auto) 0.0 Baso # (Auto) 0.1 Abs Immat Gran (auto) 0.47 H Absolute Neuts (auto) 13.0 H Absolute Nucleated RBC 0.0 Nucleated RBC % 0.0 Sodium 136 L 136 L Potassium 4.3 4.3 Chloride 103 106 Carbon Dioxide 12 L 16 L Anion Gap 21 H 14 BUN 67 H 69 H Creatinine 5.10 H 4.80 H Estim Creat Clear Calc 16 17 Estimated GFR 9 L 9 L Glucose 224 H 206 H Calcium 8.3 L 7.7 L Phosphorus 5.0 H 5.2 H Total Bilirubin 2.2 H Direct Bilirubin 0.2 AST 112 H ALT 281 H Alkaline Phosphatase 149 H Total Protein 6.0 L Albumin 3.7 3.1 L Microbiology 11/11/22 13:55 Urine Clean Catch Urine Culture - Final 11/11/22 15:52 Blood Blood Culture - Preliminary Gram negative bacilli isolated 11/11/22 15:50 Blood Blood Culture - Preliminary Gram negative bacilli isolated Patient Feedback: Patient satisfied with anesthetic care.
[2022-11-13 18:47] LABS: Albumin Level 3.4 g/dL (3.5-5.1); Anion Gap 10 mmol/L (8-16); Blood Urea Nitrogen 67 mg/dL (7-17); Calcium 8.3 mg/dL (8.4-10.2); Carbon Dioxide 19 mmol/L (22-30); Chloride 105 mmol/L (98-107); Estimated CRCL calculation 18 ml/min; Estimated Glomerular Filt Rate 10; Glucose 196 mg/dL (65-110); Phosphorus 4.1 mg/dL (2.5-4.5); Potassium 3.9 mmol/L (3.4-5.0); Sodium 134 mmol/L (137-145)
[2022-11-13 20:33] VITALS: BP 142/68; PULSE 67; RESP 16; TEMP 36.6; O2SAT 98
[2022-11-14] MEDS: LEVOTHYROXINE SODIUM 125 MCG TABLET PO (05:31)
[2022-11-14] MEDS: PIPERACILLIN/TAZ 2.25G/NS 50ML 2.25 GM/50 ML BAG IVPB ×4 (05:31→23:37)
[2022-11-14] MEDS: SODIUM CHLORIDE 0.9% IV 1,000 ML 150 ML IV CONT (05:31)
[2022-11-14 05:36] VITALS: BP 155/77; PULSE 80; RESP 16; TEMP 36.4; O2SAT 98
[2022-11-14 06:26] LABS: Basophils Absolute Auto 0.1 K/mm3 (0.0-0.1); Basophils Percent Auto 0.8 % (0.2-1.2); Eosinophils Absolute Auto 0.2 K/mm3 (0-0.3); Eosinophils Percent Auto 1.5 % (0-4.4); Hematocrit 36.3 % (37.0-47.0); Hemoglobin 11.2 g/dL (12.0-15.0); Immature Granulocyte Absolute 0.46 K/mm3 (0.00-0.031); Immature Granulocyte Percent A 4.3 % (0-0.5); Lymphocytes Percent Auto 15.1 % (18.3-44.2); Mean Corpuscular HGB Conc 30.9 g/dl (32-36); Mean Corpuscular Hemoglobin 28.9 pg (26-34); Mean Corpuscular Volume 93.6 fl (80-100); Mean Platelet Volume 11.3 fl (7.4-10.4); Monocytes Percent Auto 9.3 % (2.6-8.5); Neutrophils Absolute Auto 7.3 K/mm3 (1.3-6.7); Platelet Count Result 227 k/mm3 (150-375); Red Blood Count 3.88 M/mm3 (4.2-5.4); Red Cell Distribution Width 14.6 % (11.5-14.5); White Blood Count 10.6 K/mm3 (4.5-10.0)
[2022-11-14 06:39] LABS: Alanine Aminotransferase 206 U/L (6-35); Albumin Level 3.2 g/dL (3.5-5.1); Alkaline Phosphatase 188 U/L (38-126); Anion Gap 10 mmol/L (8-16); Aspartate Amino Transferase 35 U/L (14-36); Bilirubin,Total 1.4 mg/dL (0.2-1.3); Blood Urea Nitrogen 59 mg/dL (7-17); Calcium 8.1 mg/dL (8.4-10.2); Carbon Dioxide 17 mmol/L (22-30); Chloride 111 mmol/L (98-107); Estimated CRCL calculation 19 ml/min; Estimated Glomerular Filt Rate 11; Glucose 199 mg/dL (65-110); Phosphorus 4.2 mg/dL (2.5-4.5); Potassium 4.1 mmol/L (3.4-5.0); Sodium 138 mmol/L (137-145)
[2022-11-14] MEDS: FAMOTIDINE 20 MG/2 ML VIAL IV PUSH ×2 (08:40→20:19)
[2022-11-14] MEDS: ENOXAPARIN 40 MG/0.4 ML SYRINGE SUB-Q (08:40)
[2022-11-14 09:13] VITALS: O2SAT 98
--- NOTE | 2022-11-14 10:18 | PM.IMPN ---
Progress Note: A&P Assessment and Plan (1) Sepsis: Qualifiers: Sepsis acute organ dysfunction status: unspecified Sepsis type: sepsis due to unspecified organism Qualified Code(s): A41.9 - Sepsis, unspecified organism Code(s): A41.9 - Sepsis, unspecified organism Status: Acute Assessment and Plan: 11/12: Patient has both acute cholecystitis and acute urinary tract infection with new onset acute renal failure without hypotension. She has received IV fluids and is on IV antibiotics. Plan is to go to the operating room for cholecystectomy and we will continue to treat UTI. 11/13: Gram negative bacilli in 2/2 blood cultures, continue IV antibiotics. 11/14: Blood cultures identified as E coli susceptibilities to follow (2) Acute cholecystitis: Code(s): K81.0 - Acute cholecystitis Status: Acute Assessment and Plan: 11/12: Patient to go to the operating room per Dr. Austin today 11/13: POD 1 s/p lap joanne, doing well 11/14: Postop day 2 doing well (3) Acute renal failure: Qualifiers: Acute renal failure type: unspecified Qualified Code(s): N17.9 - Acute kidney failure, unspecified Code(s): N17.9 - Acute kidney failure, unspecified Status: Acute Assessment and Plan: 11/12: Nephrology has been consulted, worsening acute renal failure despite fluid administration. Initially thought to be related to dehydration and vomiting. 11/13: Nephrology saw patient today, will monitor renal function for improvement. 11/14: Minor improvement noted. Serum creatinine 4.1, EGFR 11 (4) Urinary tract infection: Qualifiers: Hematuria presence: with hematuria Urinary tract infection type: acute cystitis Qualified Code(s): N30.01 - Acute cystitis with hematuria Code(s): N39.0 - Urinary tract infection, site not specified Status: Acute Assessment and Plan: Continue to treat with IV antibiotics pending cultures 11/13: Urine culture no growth. 11/14: Resolved (5) Hyponatremia: Code(s): E87.1 - Hypo-osmolality and hyponatremia Status: Acute Assessment and Plan: Acute hyponatremia noted 127 on admission. Likely related to dehydration acute renal failure. Nephrology consulted. Appreciate all recommendations and considerations. 11/13: Improving, 133 today. 9 point rise in 2 days without neurologic complaints. Nephrology on board. Appreciate IV fluid and other recommendations. 11/14: Normalized at 138. Patient still on IVF for YNAICK (6) Essential (primary) hypertension: Code(s): I10 - Essential (primary) hypertension Status: Acute Assessment and Plan: History of hypertension, well controlled on the lower side of normal while holding amlodipine and losartan. 11/13: Stable, blood pressure reviewed on 11/13 11/14: Mildly hypertensive. Restart amlodipine, hold losartan due to YANICK (7) Hypothyroidism, unspecified: Code(s): E03.9 - Hypothyroidism, unspecified Status: Chronic Assessment and Plan: TSH significantly elevated. Reflex T4 normal. Continue levothyroxine. Plan Nephrology consult for acute renal failure and hyponatremia. Continue IV antibiotics. Diet per surgery, will recommend renal diet Renal function tests bid until stable Time Spent With Patient Time with patient: 25 - 35 minutes Subjective Date/time seen: 11/14/22 10:18 Interval history: Patient was admitted for findings sepsis and acute cholecystitis as well as acute renal failure. Despite fluid resuscitation renal failure continued worsen. General surgery and Nephrology consulted. Patient to go to the operating room for cholecystectomy. Patient states that she came to the hospital for persistent nausea and vomiting that gets better when she does not eat solid food but then returns whenever she eats again. This is been going on for about week. Patient denies current abdominal pain or vomiting still has nausea. She den
[2022-11-14] MEDS: amLODIPine BESYLATE 5 MG TABLET PO (12:39)
[2022-11-14 14:00] VITALS: BP 154/76; PULSE 78; RESP 18; TEMP 36.7; O2SAT 100
--- NOTE | 2022-11-14 14:12 | P.PNNP_ITS ---
Progress Note: A&P Assessment and Plan (1) YANICK (acute kidney injury): Code(s): N17.9 - Acute kidney failure, unspecified Status: Acute Assessment and Plan: * normal creatinine at baseline * suspect multifactorial ATN: * acute infection (cholecystitis + UTI) * prerenal factors (N/V + poor oral intake) * ARB use prior to admission * slow improvement noted (creatinine appears to have peaked/plateaued at 5.10mg/dl) * CT imaging with interval development of a lobular contour of the right kidney with multiple areas of scarring identified. There is a 2 mm nonobstructing stone of the right kidney lower pole. The left kidney is unremarkable. * hold off of urine testing since renal function improving * continue current therapy * hold losartan for now * follow trend of repeat labs and UOP (2) Acute cholecystitis: Code(s): K81.0 - Acute cholecystitis Status: Acute Assessment and Plan: * as noted by admission imaging * s/p laproscopic cholecystectomy (on 11/12/22) -- operative note reviewed * General Surgery following * blood culture with E. coli * continue antibiotics (3) Urinary tract infection: Qualifiers: Hematuria presence: with hematuria Urinary tract infection type: acute cystitis Qualified Code(s): N30.01 - Acute cystitis with hematuria Code(s): N39.0 - Urinary tract infection, site not specified Status: Acute Assessment and Plan: * admission UA suggestive * on antibiotics * follow culture data (4) Essential (primary) hypertension: Code(s): I10 - Essential (primary) hypertension Status: Acute Assessment and Plan: * BP doing better * restarted on amlodipine * follow trend of hemodynamics (5) Diabetes mellitus type 2, controlled: Code(s): E11.9 - Type 2 diabetes mellitus without complications Status: Acute Assessment and Plan: * follow accu-cheks * glycemic control per hospitalists Will continue to follow. Subjective Date/time seen: 11/14/22 14:12 Interval history: Follow-up for acute kidney injury/acute renal failure. Renal function continues to slowly improve with current interventions; reports feeling better overall in comparison to admission; no acute distress noted; no issues/events ovenright or earlier this morning. Exam Narrative: General: WD/WN female in NAD Heart: normal S1 and S2; no rub Lungs: clear to auscultation Abdomen: soft, nontender, nondistended, positive bowel sounds Extremities: no cyanosis or clubbing; no edema Skin: warm and dry Objective Data Vital Signs Vital Signs: Vital Signs Temp Pulse Resp BP Pulse Ox O2 Del Method 11/14/22 08:00 Room Air 11/14/22 14:00 98.0 F 78 18 154/76 H 100 11/14/22 09:13 98 Room Air 11/14/22 05:36 97.6 F 80 16 155/77 H 98 11/13/22 20:33 97.8 F 67 16 142/68 H 98 Intake/Output Intake/Output: Intake & Output 11/11/22 11/12/22 11/13/22 11/14/22 23:59 23:59 23:59 23:59 Intake Total 1050 2792 4810 2790 Output Total 20 60 45 Balance 1050 2772 8910 2745 Meds/Results Medications: Active Medications Generic Name Dose Route Start Last Admin Tra
--- NOTE | 2022-11-14 14:12 | PM.PNNEP ---
Progress Note: A&P Assessment and Plan (1) YANICK (acute kidney injury): Code(s): N17.9 - Acute kidney failure, unspecified Status: Acute Assessment and Plan: normal creatinine at baseline suspect multifactorial ATN: acute infection (cholecystitis + UTI) prerenal factors (N/V + poor oral intake) ARB use prior to admission slow improvement noted (creatinine appears to have peaked/plateaued at 5.10mg/dl) CT imaging with interval development of a lobular contour of the right kidney with multiple areas of scarring identified. There is a 2 mm nonobstructing stone of the right kidney lower pole. The left kidney is unremarkable. hold off of urine testing since renal function improving continue current therapy hold losartan for now follow trend of repeat labs and UOP (2) Acute cholecystitis: Code(s): K81.0 - Acute cholecystitis Status: Acute Assessment and Plan: as noted by admission imaging s/p laproscopic cholecystectomy (on 11/12/22) -- operative note reviewed General Surgery following blood culture with E. coli continue antibiotics (3) Urinary tract infection: Qualifiers: Hematuria presence: with hematuria Urinary tract infection type: acute cystitis Qualified Code(s): N30.01 - Acute cystitis with hematuria Code(s): N39.0 - Urinary tract infection, site not specified Status: Acute Assessment and Plan: admission UA suggestive on antibiotics follow culture data (4) Essential (primary) hypertension: Code(s): I10 - Essential (primary) hypertension Status: Acute Assessment and Plan: BP doing better restarted on amlodipine follow trend of hemodynamics (5) Diabetes mellitus type 2, controlled: Code(s): E11.9 - Type 2 diabetes mellitus without complications Status: Acute Assessment and Plan: follow accu-cheks glycemic control per hospitalists Will continue to follow. Subjective Date/time seen: 11/14/22 14:12 Interval history: Follow-up for acute kidney injury/acute renal failure. Renal function continues to slowly improve with current interventions; reports feeling better overall in comparison to admission; no acute distress noted; no issues/events ovenright or earlier this morning. Exam Narrative: General: WD/WN female in NAD Heart: normal S1 and S2; no rub Lungs: clear to auscultation Abdomen: soft, nontender, nondistended, positive bowel sounds Extremities: no cyanosis or clubbing; no edema Skin: warm and dry Objective Data Vital Signs Vital Signs: Vital Signs Temp Pulse Resp BP Pulse Ox O2 Del Method 11/14/22 08:00 Room Air 11/14/22 14:00 98.0 F 78 18 154/76 H 100 11/14/22 09:13 98 Room Air 11/14/22 05:36 97.6 F 80 16 155/77 H 98 11/13/22 20:33 97.8 F 67 16 142/68 H 98 Intake/Output Intake/Output: Intake & Output 11/11/22 11/12/22 11/13/22 11/14/22 23:59 23:59 23:59 23:59 Intake Total 1050 2792 4810 2790 Output Total 20 60 45 Balance 1050 5882 8011 2747 Meds/Results Medications: Active Medications Generic Name Dose Route Start Last Admin Trade Name Freq PRN Reason Stop Dose Admin Acetaminophen 500 mg 11/12/22 17:50 Acetaminophen 500 Mg Tablet PO Q6H PRN Mild Pain (1-3) or Fever Hydrocodone Bitart/Acetaminophen 1 tab 11/12/22 17:50 Hydrocodone/Acetaminophen (*Crx) 5-325 Mg Tablet PO Q4H PRN Pain Rated 4-6 Hydrocodone Bitart/Acetaminophen 1 tab 11/12/22 17:50 Hydrocodone/Acetaminophen (*Crx) 10-325 Mg Tablet PO Q4H PRN Pain Rated 7-10 Amlodipine Besylate 5 mg 11/14/22 12:20 11/14/22 12:39 Amlodipine Besylate 5 Mg Tablet PO 5 mg DAILY JACKSON Administration Enoxaparin Sodium 40 mg 11/13/22 09:00 11/14/22 08:40 Enoxaparin 40 Mg/0.4 Ml Syringe SUB-Q 40 mg DAILY JACKSON Administration Famotidine 20 mg 11/12/22 21:00 11/14/22
--- NOTE | 2022-11-14 17:34 | PM.PNGS ---
Progress Note: A&P Assessment and Plan (1) Cholelithiasis and cholecystitis with obstruction: Code(s): K80.19 - Calculus of gallbladder with other cholecystitis with obstruction Status: Acute Assessment and Plan: Recovering satisfactorily after laparoscopic cholecystectomy 2 days ago. Continue FAB drain. Continue IV antibiotics. Advanced to low-fat diet. Increase ambulation. (2) Sepsis: Qualifiers: Sepsis acute organ dysfunction status: unspecified Sepsis type: sepsis due to unspecified organism Qualified Code(s): A41.9 - Sepsis, unspecified organism Code(s): A41.9 - Sepsis, unspecified organism Status: Acute Assessment and Plan: Secondary to cholecystitis. (3) E coli bacteremia: Code(s): R78.81 - Bacteremia; B96.20 - Unspecified Escherichia coli [E. coli] as the cause of diseases classified elsewhere Status: Acute Assessment and Plan: Sensitivities pending (4) Acute renal failure: Qualifiers: Acute renal failure type: unspecified Qualified Code(s): N17.9 - Acute kidney failure, unspecified Code(s): N17.9 - Acute kidney failure, unspecified Status: Acute Assessment and Plan: Creatinine slowly improving. (5) Hyperbilirubinemia: Code(s): E80.6 - Other disorders of bilirubin metabolism Status: Acute Assessment and Plan: Resolving Subjective Subjective Date/Time Seen: 11/14/22 17:34 Post Op day: 2 Patient reports: feels better, pain is less, tolerating liquids well and afebrile Exam Const: General: comfortable and no acute distress Orientation/consciousness: patient oriented x3 GI: Inspection: obesity and other (FAB serosanguineous fluid) GI Palp: Yes Soft to palpation, Yes Tenderness to palpation present (GI) (Right upper quadrant has expected), No Guarding due to palpation present (GI) and No Rebound tenderness present Neuro: General: patient oriented x3 and no focal motor deficits Extrem: General: no calf tenderness and no edema Psych: Affect: normal affect Insight: Good insight present (Psych) Judgement: Good judgement present (Psych) Objective Data Vital Signs Vital Signs: Vital Signs - 24 hr 11/13/22 20:33 11/14/22 05:36 11/14/22 09:13 Temperature 36.6 C 36.4 C Pulse Rate 67 80 Respiratory Rate 16 16 Blood Pressure 142/68 H 155/77 H Pulse Oximetry 98 98 98 Oxygen Delivery Room Air 11/14/22 14:00 11/14/22 08:00 Temperature 36.7 C Pulse Rate 78 Respiratory Rate 18 Blood Pressure 154/76 H Pulse Oximetry 100 Oxygen Delivery Room Air Intake/Output Intake/Output: Intake & Output 11/11/22 11/12/22 11/13/22 11/14/22 23:59 23:59 23:59 23:59 Intake Total 1050 2792 4110 2740 Output Total 20 60 45 Balance 1050 2772 6831 8038 Meds/Results Medications: Active Medications Generic Name Dose Route Start Last Admin Trade Name Freq PRN Reason Stop Dose Admin Acetaminophen 500 mg 11/12/22 17:50 Acetaminophen 500 Mg Tablet PO Q6H PRN Mild Pain (1-3) or Fever Hydrocodone Bitart/Acetaminophen 1 tab 11/12/22 17:50 Hydrocodone/Acetaminophen (*Crx) 5-325 Mg Tablet PO Q4H PRN Pain Rated 4-6 Hydrocodone Bitart/Acetaminophen 1 tab 11/12/22 17:50 Hydrocodone/Acetaminophen (*Crx) 10-325 Mg Tablet PO Q4H PRN Pain Rated 7-10 Amlodipine Besylate 5 mg 11/14/22 12:20 11/14/22 12:39 Amlodipine Besylate 5 Mg Tablet PO 5 mg DAILY JACKSON Administration Enoxaparin Sodium 40 mg 11/13/22 09:00 11/14/22 08:40 Enoxaparin 40 Mg/0.4 Ml Syringe SUB-Q 40 mg DAILY JACKSON Administration Famotidine 20 mg 11/12/22 21:00 11/14/22 08:40 Famotidine 20 Mg/2 Ml Vial IV PUSH 20 mg Q12HR JACKSON Administration Piperacillin Sod/Tazobactam Sod 2.25 gm in 50 mls @ 100 mls/hr 11/12/22 00:00 11/14/22 12:38 Zosyn 2.25 Gm/Ns 50 Ml IVPB 100 mls/hr Q6H JACKSON Administration Sodium Chloride 1,000 mls @ 75 mls/hr
[2022-11-14 19:11] LABS: Albumin Level 3.1 g/dL (3.5-5.1); Anion Gap 6 mmol/L (8-16); Blood Urea Nitrogen 53 mg/dL (7-17); Calcium 8.3 mg/dL (8.4-10.2); Carbon Dioxide 17 mmol/L (22-30); Chloride 109 mmol/L (98-107); Estimated CRCL calculation 22 ml/min; Estimated Glomerular Filt Rate 13; Glucose 180 mg/dL (65-110); Phosphorus 3.6 mg/dL (2.5-4.5); Potassium 3.6 mmol/L (3.4-5.0); Sodium 132 mmol/L (137-145)
[2022-11-14] MEDS: SODIUM CHLORIDE 0.9% IV 1,000 ML 75 ML IV CONT (20:58)
[2022-11-14 21:41] VITALS: BP 144/68; PULSE 81; RESP 21; TEMP 36.5; O2SAT 100
--- NOTE | 2022-11-15 05:13 | PC.NURSE ---
On 11/14/22-11/15/22, the license pending RN, Kishor Villarreal, provided care and completed [employer] documentation on this patient. I have reviewed the RN's documentation and agree with the findings.
[2022-11-15] MEDS: PIPERACILLIN/TAZ 2.25G/NS 50ML 2.25 GM/50 ML BAG IVPB ×4 (05:27→23:25)
[2022-11-15] MEDS: LEVOTHYROXINE SODIUM 125 MCG TABLET PO (05:30)
[2022-11-15 05:34] LABS: Hematocrit 33.9 % (37.0-47.0); Hemoglobin 10.7 g/dL (12.0-15.0); Mean Corpuscular HGB Conc 31.6 g/dl (32-36); Mean Corpuscular Hemoglobin 28.8 pg (26-34); Mean Corpuscular Volume 91.4 fl (80-100); Mean Platelet Volume 10.9 fl (7.4-10.4); Platelet Count Result 239 k/mm3 (150-375); Red Blood Count 3.71 M/mm3 (4.2-5.4); Red Cell Distribution Width 14.3 % (11.5-14.5); White Blood Count 10.2 K/mm3 (4.5-10.0)
[2022-11-15 05:58] LABS: Band Neutrophils Percent 5 % (0-6); Eosinophils Absolute Manual 0.51 K/mm3 (0.02-0.5); Eosinophils Percent Manual 5 % (0-4); Lymphocytes Absolute Manual 1.73 K/mm3 (1.1-4.5); Monocytes Percent Manual 4 % (3-9); Neutrophils Absolute Manual 7.54 K/mm3 (1.7-7.2); Neutrophils Percent Manual 69 % (46-73); Platelet Estimate Adequate (Adequate); Schistocytes None Seen (NORMAL); Total Cells Counted 100
[2022-11-15 05:59] LABS: Alanine Aminotransferase 144 U/L (6-35); Alkaline Phosphatase 160 U/L (38-126); Anion Gap 4 mmol/L (8-16); Anisocytosis 1+ (NORMAL); Aspartate Amino Transferase 21 U/L (14-36); Bilirubin,Total 1.2 mg/dL (0.2-1.3); Blood Urea Nitrogen 48 mg/dL (7-17); Calcium 8.1 mg/dL (8.4-10.2); Carbon Dioxide 20 mmol/L (22-30); Chloride 109 mmol/L (98-107); Estimated CRCL calculation 24 ml/min; Estimated Glomerular Filt Rate 14; Glucose 163 mg/dL (65-110); Phosphorus 3.8 mg/dL (2.5-4.5); Potassium 3.6 mmol/L (3.4-5.0); Sodium 133 mmol/L (137-145)
[2022-11-15 06:00] VITALS: BP 135/65; PULSE 80; RESP 20; TEMP 36.2; O2SAT 98
--- NOTE | 2022-11-15 09:30 | PM.IMPN ---
Progress Note: A&P Assessment and Plan (1) Sepsis: Qualifiers: Sepsis acute organ dysfunction status: unspecified Sepsis type: sepsis due to unspecified organism Qualified Code(s): A41.9 - Sepsis, unspecified organism Code(s): A41.9 - Sepsis, unspecified organism Status: Acute Assessment and Plan: Presented to the ED with hypothermia, and leukocytosis with renal failures Source of infection cholecystitis and UTI IV antibiotics continued Blood culture grew Ecoli Continue Zosyn at this time Consider changing to Augmentin Current WBC is 10.2 Stable (2) Acute cholecystitis: Code(s): K81.0 - Acute cholecystitis Status: Acute Assessment and Plan: Post op day 3 Wound and incisions stable continue IV antibiotics for now Pain medications on board Currently stable (3) Acute renal failure: Qualifiers: Acute renal failure type: unspecified Qualified Code(s): N17.9 - Acute kidney failure, unspecified Code(s): N17.9 - Acute kidney failure, unspecified Status: Acute Assessment and Plan: BUN/Cr elevated and peaked at 67/5.10 Continuing to trend down currently 48/3.30 Continue IV fluids Nephrology consulted thank you for your help Trend labs Baseline is most likely 0.9 (4) Urinary tract infection: Qualifiers: Hematuria presence: with hematuria Urinary tract infection type: acute cystitis Qualified Code(s): N30.01 - Acute cystitis with hematuria Code(s): N39.0 - Urinary tract infection, site not specified Status: Acute Assessment and Plan: Resolved Urine culture shows no growth (5) Hyponatremia: Code(s): E87.1 - Hypo-osmolality and hyponatremia Status: Acute Assessment and Plan: Acute hyponatremia noted 127 on admission, and currently 133 Likely related to dehydration acute renal failure. Nephrology consulted. thank you for your help Stabilizing Continue to trend (6) Essential (primary) hypertension: Code(s): I10 - Essential (primary) hypertension Status: Acute Assessment and Plan: Currently BP is stable at 135/65 Continue home medications amlodipine, and losartan Trend BP adjust therapy as indicated (7) Hypothyroidism, unspecified: Code(s): E03.9 - Hypothyroidism, unspecified Status: Chronic Assessment and Plan: TSH elevated at 28.900. T4 0.82. Continue levothyroxine. Have patient recheck in 6 weeks (8) E coli bacteremia: Code(s): R78.81 - Bacteremia; B96.20 - Unspecified Escherichia coli [E. coli] as the cause of diseases classified elsewhere Status: Acute Assessment and Plan: Blood cultures grew Ecoli Continue Zosyn WBC decreasing consider changing to Augmentin 500 mg Q8H Time Spent With Patient Time: 49 minutes Time with patient: Greater than 35 minutes Subjective Date/time seen: 11/15/22 13:52 Interval history: Patient was admitted for findings sepsis and acute cholecystitis as well as acute renal failure. Despite fluid resuscitation renal failure continued worsen. General surgery and Nephrology consulted. Patient to go to the operating room for cholecystectomy. Patient states that she came to the hospital for persistent nausea and vomiting that gets better when she does not eat solid food but then returns whenever she eats again. This is been going on for about week. Patient denies current abdominal pain or vomiting still has nausea. She denies chest pain shortness of breath fever chills cough constipation or diarrhea. 11/13: Patient underwent laparoscopic cholecystectomy yesterday is feeling well today from this. She is ambulatory without assistance. Blood cultures positive 2/2 bottles Gram-negative bacilli. Patient reports urinating every 4 h
--- NOTE | 2022-11-15 09:30 | P.PNIM_ITS ---
Progress Note: A&P Assessment and Plan (1) Sepsis: Qualifiers: Sepsis acute organ dysfunction status: unspecified Sepsis type: sepsis due to unspecified organism Qualified Code(s): A41.9 - Sepsis, unspecified o rganism Code(s): A41.9 - Sepsis, unspecified organism Status: Acute Assessment and Plan: * Presented to the ED with hypothermia, and leukocytosis with renal failures * Source of infection cholecystitis and UTI * IV antibiotics continued * Blood culture grew Ecoli * Continue Zosyn at this time * Consider changing to Augmentin * Current WBC is 10.2 * Stable (2) Acute cholecystitis: Code(s): K81.0 - Acute cholecystitis Status: Acute Assessment and Plan: * Post op day 3 * Wound and incisions stable * continue IV antibiotics for now * Pain medications on board * Currently stable (3) Acute renal failure: Qualifiers: Acute renal failure type: unspecified Qualified Code(s): N17.9 - Acute kidney failure, unspecified Code(s): N17.9 - Acute kidney failure, unspecified Status: Acute Assessment and Plan: * BUN/Cr elevated and peaked at 67/5.10 * Continuing to trend down currently 48/3.30 * Continue IV fluids * Nephrology consulted thank you for your help * Trend labs * Baseline is most likely 0.9 (4) Urinary tract infection: Qualifiers: Hematuria presence: with hematuria Urinary tract infection type: acute cystitis Qualified Code(s): N30.01 - Acute cystitis with hematuria Code(s): N39.0 - Urinary tract infection, site not specified Status: Acute Assessment and Plan: * Resolved * Urine culture shows no growth (5) Hyponatremia: Code(s): E87.1 - Hypo-osmolality and hyponatremia Status: Acute Assessment and Plan: * Acute hyponatremia noted 127 on admission, and currently 133 * Likely related to dehydration acute renal failure. * Nephrology consulted. thank you for your help * Stabilizing * Continue to trend (6) Essential (primary) hypertension: Code(s): I10 - Essential (primary) hypertension Status: Acute Assessment and Plan: * Currently BP is stable at 135/65 * Continue home medications amlodipine, and losartan * Trend BP * adjust therapy as indicated (7) Hypothyroidism, unspecified: Code(s): E03.9 - Hypothyroidism, unspecified Status: Chronic Assessment and Plan: * TSH elevated at 28.900. * T4 0.82. * Continue levothyroxine. * Have patient recheck in 6 weeks (8) E coli bacteremia: Code(s): R78.81 - Bacteremia; B96.20 - Unspecified Escherichia coli [E. coli] as the cause of diseases classified elsewhere Status: Acute Assessment and Plan: * Blood cultures grew Ecoli * Continue Zosyn * WBC decreasing * consider changing to Augmentin 500 mg Q8H Time Spent With Patient Time: 49 minutes Time with patient: Greater than 35 minutes Subjective Date/time seen: 11/15/22 13:52 Interval history: Patient was admitted for findings sepsis and acute cholecystitis as well as acute renal failure. Despite fluid resuscitation renal failure continued worsen. General surgery and Nephrology c
[2022-11-15] MEDS: FAMOTIDINE 20 MG/2 ML VIAL IV PUSH ×2 (09:34→20:13)
[2022-11-15] MEDS: ENOXAPARIN 40 MG/0.4 ML SYRINGE SUB-Q (09:34)
[2022-11-15] MEDS: amLODIPine BESYLATE 5 MG TABLET PO (09:34)
[2022-11-15] MEDS: SODIUM CHLORIDE 0.9% IV 1,000 ML 75 ML IV CONT (11:27)
[2022-11-15 14:00] VITALS: BP 163/86; PULSE 88; RESP 18; TEMP 36.6; O2SAT 99
--- NOTE | 2022-11-15 14:00 | PM.PNNEP ---
Progress Note: A&P Assessment and Plan (1) YANICK (acute kidney injury): Code(s): N17.9 - Acute kidney failure, unspecified Status: Acute Assessment and Plan: slow and steady improvement noted normal creatinine at baseline suspect multifactorial ATN: acute infection (cholecystitis + UTI) prerenal factors (N/V + poor oral intake) ARB use prior to admission slow improvement noted (creatinine appears to have peaked/plateaued at 5.10mg/dl) CT imaging with interval development of a lobular contour of the right kidney with multiple areas of scarring identified. There is a 2 mm nonobstructing stone of the right kidney lower pole. The left kidney is unremarkable. hold off of urine testing since renal function improving continue current therapy hold losartan for now follow trend of repeat labs and UOP (2) Acute cholecystitis: Code(s): K81.0 - Acute cholecystitis Status: Acute Assessment and Plan: as noted by admission imaging s/p laproscopic cholecystectomy (on 11/12/22) -- operative note reviewed General Surgery following blood culture with E. coli continue antibiotics (3) Urinary tract infection: Qualifiers: Hematuria presence: with hematuria Urinary tract infection type: acute cystitis Qualified Code(s): N30.01 - Acute cystitis with hematuria Code(s): N39.0 - Urinary tract infection, site not specified Status: Acute Assessment and Plan: admission UA suggestive on antibiotics urine culture negative (4) Essential (primary) hypertension: Code(s): I10 - Essential (primary) hypertension Status: Acute Assessment and Plan: BP doing better restarted on amlodipine follow trend of hemodynamics (5) Diabetes mellitus type 2, controlled: Code(s): E11.9 - Type 2 diabetes mellitus without complications Status: Acute Assessment and Plan: follow accu-cheks glycemic control per hospitalists Will continue to follow. Subjective Date/time seen: 11/15/22 14:00 Interval history: Follow-up for acute kidney injury/acute renal failure. Overall, states that she continues to improve and feel better; renal function/creatinine continues to improve as well; no apparent distress noted; no issues/events overnight or earlier this AM. Exam Narrative: General: WD/WN female in NAD Heart: normal S1 and S2; no rub Lungs: clear to auscultation Abdomen: soft, nontender, nondistended, positive bowel sounds Extremities: no cyanosis or clubbing; no edema Skin: warm and intact Objective Data Vital Signs Vital Signs: Vital Signs Temp Pulse Resp BP Pulse Ox O2 Del Method 11/15/22 14:00 97.9 F 88 18 163/86 H 99 11/15/22 08:00 Room Air 11/15/22 06:00 97.2 F L 80 20 135/65 98 11/14/22 21:41 97.7 F 81 21 H 144/68 H 100 Intake/Output Intake/Output: Intake & Output 11/12/22 11/13/22 11/14/22 11/15/22 23:59 23:59 23:59 23:59 Intake Total 2792 4810 4060 3610 Output Total 20 60 45 25 Balance 2772 6594 9714 0966 Meds/Results Medications: Active Medications Generic Name Dose Route Start Last Admin Trade Name Freq PRN Reason Stop Dose Admin Acetaminophen 500 mg 11/12/22 17:50 Acetaminophen 500 Mg Tablet PO Q6H PRN Mild Pain (1-3) or Fever Hydrocodone Bitart/Acetaminophen 1 tab 11/12/22 17:50 Hydrocodone/Acetaminophen (*Crx) 5-325 Mg Tablet PO Q4H PRN Pain Rated 4-6 Hydrocodone Bitart/Acetaminophen 1 tab 11/12/22 17:50 Hydrocodone/Acetaminophen (*Crx) 10-325 Mg Tablet PO Q4H PRN Pain Rated 7-10 Amlodipine Besylate 5 mg 11/14/22 12:20 11/15/22 09:34 Amlodipine Besylate 5 Mg Tablet PO 5 mg DAILY JACKSON Administration Enoxaparin Sodium 40 mg 11/13/22 09:00 11/15/22 09:34 Enoxaparin 40 Mg/0.4 Ml Syringe SUB-Q 40 mg DAILY JACKSON Administration Famotidine 20 mg 11/12/22 21:00 11/15/22 0
--- NOTE | 2022-11-15 14:00 | P.PNNP_ITS ---
Progress Note: A&P Assessment and Plan (1) YANICK (acute kidney injury): Code(s): N17.9 - Acute kidney failure, unspecified Status: Acute Assessment and Plan: * slow and steady improvement noted * normal creatinine at baseline * suspect multifactorial ATN: * acute infection (cholecystitis + UTI) * prerenal factors (N/V + poor oral intake) * ARB use prior to admission * slow improvement noted (creatinine appears to have peaked/plateaued at 5.10mg/dl) * CT imaging with interval development of a lobular contour of the right kidney with multiple areas of scarring identified. There is a 2 mm nonobstructing stone of the right kidney lower pole. The left kidney is unremarkable. * hold off of urine testing since renal function improving * continue current therapy * hold losartan for now * follow trend of repeat labs and UOP (2) Acute cholecystitis: Code(s): K81.0 - Acute cholecystitis Status: Acute Assessment and Plan: * as noted by admission imaging * s/p laproscopic cholecystectomy (on 11/12/22) -- operative note reviewed * General Surgery following * blood culture with E. coli * continue antibiotics (3) Urinary tract infection: Qualifiers: Hematuria presence: with hematuria Urinary tract infection type: acute cystitis Qualified Code(s): N30.01 - Acute cystitis with hematuria Code(s): N39.0 - Urinary tract infection, site not specified Status: Acute Assessment and Plan: * admission UA suggestive * on antibiotics * urine culture negative (4) Essential (primary) hypertension: Code(s): I10 - Essential (primary) hypertension Status: Acute Assessment and Plan: * BP doing better * restarted on amlodipine * follow trend of hemodynamics (5) Diabetes mellitus type 2, controlled: Code(s): E11.9 - Type 2 diabetes mellitus without complications Status: Acute Assessment and Plan: * follow accu-cheks * glycemic control per hospitalists Will continue to follow. Subjective Date/time seen: 11/15/22 14:00 Interval history: Follow-up for acute kidney injury/acute renal failure. Overall, states that she continues to improve and feel better; renal function/creatinine continues to improve as well; no apparent distress noted; no issues/events overnight or earlier this AM. Exam Narrative: General: WD/WN female in NAD Heart: normal S1 and S2; no rub Lungs: clear to auscultation Abdomen: soft, nontender, nondistended, positive bowel sounds Extremities: no cyanosis or clubbing; no edema Skin: warm and intact Objective Data Vital Signs Vital Signs: Vital Signs Temp Pulse Resp BP Pulse Ox O2 Del Method 11/15/22 14:00 97.9 F 88 18 163/86 H 99 11/15/22 08:00 Room Air 11/15/22 06:00 97.2 F L 80 20 135/65 98 11/14/22 21:41 97.7 F 81 21 H 144/68 H 100 Intake/Output Intake/Output: Intake & Output 11/12/22 11/13/22 11/14/22 11/15/22 23:59 23:59 23:59 23:59 Intake Total 2792 4810 4060 3610 Output Total 20 60 45 25 Balance 2962 9014 8860 3585 Meds/Results Medications: Active Medications Generic Name Dose Route Start Last Admin Trade Name F
--- NOTE | 2022-11-15 17:46 | PM.PNGS ---
Progress Note: A&P Assessment and Plan (1) Cholelithiasis and cholecystitis with obstruction: Code(s): K80.19 - Calculus of gallbladder with other cholecystitis with obstruction Status: Acute Assessment and Plan: Severe acute cholecystitis likely the source of sepsis and bacteremia. Doing well status post laparoscopic cholecystectomy. Will remove FAB drain. Having diarrhea, will try Imodium. Probably home tomorrow if okay with hospitalist. (2) E coli bacteremia: Code(s): R78.81 - Bacteremia; B96.20 - Unspecified Escherichia coli [E. coli] as the cause of diseases classified elsewhere Status: Acute (3) Sepsis: Qualifiers: Sepsis acute organ dysfunction status: unspecified Sepsis type: sepsis due to unspecified organism Qualified Code(s): A41.9 - Sepsis, unspecified organism Code(s): A41.9 - Sepsis, unspecified organism Status: Acute Subjective Subjective Date/Time Seen: 11/15/22 17:46 Post Op day: 3 Patient reports: feels better, pain is less, tolerating a regular diet, diarrhea and afebrile Interval history: Having 5-6 liquid stools per day. Pretty much has liquid BM when urinates. Does feel quite a bit better. Walking in room without difficulty. Exam GI: Inspection: incision (All are dry and healing) and other (FAB drain shows blood-tinged serous fluid) GI Palp: Yes Soft to palpation and Yes Tenderness to palpation present (GI) (Minimal tenderness) Objective Data Vital Signs Vital Signs: Vital Signs - 24 hr 11/14/22 21:41 11/15/22 06:00 11/15/22 08:00 Temperature 36.5 C 36.2 C L Pulse Rate 81 80 Respiratory Rate 21 H 20 Blood Pressure 144/68 H 135/65 Pulse Oximetry 100 98 Oxygen Delivery Room Air 11/15/22 14:00 Temperature 36.6 C Pulse Rate 88 Respiratory Rate 18 Blood Pressure 163/86 H Pulse Oximetry 99 Oxygen Delivery Intake/Output Intake/Output: Intake & Output 11/12/22 11/13/22 11/14/22 11/15/22 23:59 23:59 23:59 23:59 Intake Total 5763 2072 4060 3390 Output Total 20 60 45 25 Balance 2170 2908 7085 3365 Meds/Results Medications: Active Medications Generic Name Dose Route Start Last Admin Trade Name Freq PRN Reason Stop Dose Admin Acetaminophen 500 mg 11/12/22 17:50 Acetaminophen 500 Mg Tablet PO Q6H PRN Mild Pain (1-3) or Fever Hydrocodone Bitart/Acetaminophen 1 tab 11/12/22 17:50 Hydrocodone/Acetaminophen (*Crx) 5-325 Mg Tablet PO Q4H PRN Pain Rated 4-6 Hydrocodone Bitart/Acetaminophen 1 tab 11/12/22 17:50 Hydrocodone/Acetaminophen (*Crx) 10-325 Mg Tablet PO Q4H PRN Pain Rated 7-10 Amlodipine Besylate 5 mg 11/14/22 12:20 11/15/22 09:34 Amlodipine Besylate 5 Mg Tablet PO 5 mg DAILY JACKSON Administration Enoxaparin Sodium 40 mg 11/13/22 09:00 11/15/22 09:34 Enoxaparin 40 Mg/0.4 Ml Syringe SUB-Q 40 mg DAILY JACKSON Administration Famotidine 20 mg 11/12/22 21:00 11/15/22 09:34 Famotidine 20 Mg/2 Ml Vial IV PUSH 20 mg Q12HR JACKSON Administration Piperacillin Sod/Tazobactam Sod 2.25 gm in 50 mls @ 100 mls/hr 11/12/22 00:00 11/15/22 17:29 Zosyn 2.25 Gm/Ns 50 Ml IVPB 100 mls/hr Q6H JACKSON Administration Sodium Chloride 1,000 mls @ 75 mls/hr 11/12/22 17:50 11/15/22 11:27 Normal Saline Iv IV CONT 75 mls/hr .[id number] JACKSON Administration Levothyroxine Sodium 125 mcg 11/12/22 06:30 11/15/22 05:30 Levothyroxine Sodium 125 Mcg Tablet PO 125 mcg DAILY@0630 JACKSON Administration Morphine Sulfate 2 mg 11/12/22 17:50 Morphine Sulfate (*Crx) 2 Mg/Ml Inj IV PUSH Q2H PRN Pain Rated 4-6 Morphine Sulfate 4 mg 11/12/22 17:50 Morphine Sulfate (*Crx) 4 Mg/Ml Inj IV PUSH Q2H PRN Pain Rated 7-10 Naloxone HCl 0.1 mg 11/12/22 17:50 Naloxone Hcl 0.4 Mg/Ml Vial IV PUSH Q2M PRN Opiate Reversal Ondansetron HCl 4 mg 11/11/22 16:38 Ondansetron Inj 4 Mg/2 Ml Vial IV PUSH Q4H PRN
[2022-11-15 22:00] VITALS: BP 137/62; PULSE 84; RESP 20; TEMP 36.4; O2SAT 99
[2022-11-16] MEDS: SODIUM CHLORIDE 0.9% IV 1,000 ML 75 ML IV CONT (02:06)
[2022-11-16] MEDS: LEVOTHYROXINE SODIUM 125 MCG TABLET PO (05:13)
[2022-11-16] MEDS: PIPERACILLIN/TAZ 2.25G/NS 50ML 2.25 GM/50 ML BAG IVPB ×2 (05:13→11:33)
[2022-11-16 05:31] LABS: Hematocrit 33.2 % (37.0-47.0); Hemoglobin 10.6 g/dL (12.0-15.0); Mean Corpuscular HGB Conc 31.9 g/dl (32-36); Mean Corpuscular Hemoglobin 28.5 pg (26-34); Mean Corpuscular Volume 89.2 fl (80-100); Mean Platelet Volume 10.8 fl (7.4-10.4); Platelet Count Result 286 k/mm3 (150-375); Red Blood Count 3.72 M/mm3 (4.2-5.4); Red Cell Distribution Width 13.7 % (11.5-14.5); White Blood Count 11.9 K/mm3 (4.5-10.0)
[2022-11-16 05:43] LABS: Alanine Aminotransferase 110 U/L (6-35); Albumin Level 3.1 g/dL (3.5-5.1); Alkaline Phosphatase 169 U/L (38-126); Anion Gap 5 mmol/L (8-16); Aspartate Amino Transferase 18 U/L (14-36); Bilirubin,Total 1.1 mg/dL (0.2-1.3); Blood Urea Nitrogen 33 mg/dL (7-17); Calcium 8.2 mg/dL (8.4-10.2); Carbon Dioxide 22 mmol/L (22-30); Chloride 109 mmol/L (98-107); Estimated CRCL calculation 34 ml/min; Estimated Glomerular Filt Rate 21; Glucose 169 mg/dL (65-110); Magnesium 1.5 mg/dL (1.6-2.3); Phosphorus 3.8 mg/dL (2.5-4.5); Potassium 3.3 mmol/L (3.4-5.0); Sodium 136 mmol/L (137-145)
[2022-11-16 06:00] VITALS: BP 131/65; PULSE 84; RESP 20; TEMP 36.4; O2SAT 98
[2022-11-16 06:06] LABS: Band Neutrophils Percent 5 % (0-6); Eosinophils Absolute Manual 0.11 K/mm3 (0.02-0.5); Eosinophils Percent Manual 1 % (0-4); Lymphocytes Absolute Manual 2.38 K/mm3 (1.1-4.5); Lymphocytes Percent Manual 20 % (18-44); Monocytes Absolute Manual 0.59 K/mm3 (0.1-0.90); Monocytes Percent Manual 5 % (3-9); Neutrophils Absolute Manual 8.68 K/mm3 (1.7-7.2); Neutrophils Percent Manual 68 % (46-73); Total Cells Counted 100
[2022-11-16 06:07] LABS: Metamyelocytes Percent 1 %; Platelet Estimate Adequate (Adequate); Schistocytes None Seen (NORMAL)
--- NOTE | 2022-11-16 06:19 | PC.NURSE ---
reviewed and agree with all charting by richard nieto
--- NOTE | 2022-11-16 07:09 | PM.PNGS ---
Progress Note: A&P Assessment and Plan (1) Cholelithiasis and cholecystitis with obstruction: Code(s): K80.19 - Calculus of gallbladder with other cholecystitis with obstruction Status: Acute Assessment and Plan: Healing well after laparoscopic cholecystectomy 4 days ago. Okay to discharge today. I will ride surgical discharge instructions. She should see me in 2 weeks. (2) E coli bacteremia: Code(s): R78.81 - Bacteremia; B96.20 - Unspecified Escherichia coli [E. coli] as the cause of diseases classified elsewhere Status: Acute Assessment and Plan: Sensitive to Augmentin. Will treat for another 5 days after discharge. (3) Sepsis: Qualifiers: Sepsis acute organ dysfunction status: unspecified Sepsis type: sepsis due to unspecified organism Qualified Code(s): A41.9 - Sepsis, unspecified organism Code(s): A41.9 - Sepsis, unspecified organism Status: Resolved (4) Acute renal failure: Qualifiers: Acute renal failure type: unspecified Qualified Code(s): N17.9 - Acute kidney failure, unspecified Code(s): N17.9 - Acute kidney failure, unspecified Status: Acute Assessment and Plan: Improving daily. Good urine output. (5) Diarrhea: Code(s): R19.7 - Diarrhea, unspecified Status: Acute Assessment and Plan: Probably due to prolonged antibiotic treatment as well as cholecystectomy. She has had loose stools in the past but not this frequent. Recommend she take Imodium on a p.r.n. basis. All discuss with her further when I see her in follow-up. Subjective Subjective Date/Time Seen: 11/16/22 07:09 Post Op day: 4 Patient reports: feels better, pain is less, tolerating a regular diet, diarrhea (Did not take Imodium) and afebrile Exam GI: Inspection: incision (Wounds healing well) and obesity GI Palp: Yes Soft to palpation and Yes Tenderness to palpation present (GI) (Mild appropriate tenderness) Objective Data Vital Signs Vital Signs: Vital Signs - 24 hr 11/15/22 08:00 11/15/22 14:00 11/15/22 22:00 Temperature 36.6 C 36.4 C L Pulse Rate 88 84 Respiratory Rate 18 20 Blood Pressure 163/86 H 137/62 Pulse Oximetry 99 99 Oxygen Delivery Room Air 11/16/22 06:00 Temperature 36.4 C L Pulse Rate 84 Respiratory Rate 20 Blood Pressure 131/65 Pulse Oximetry 98 Oxygen Delivery Intake/Output Intake/Output: Intake & Output 11/13/22 11/14/22 11/15/22 11/16/22 23:59 23:59 23:59 23:59 Intake Total 4810 4060 3710 1600 Output Total 60 45 25 Balance 4750 4015 3685 1600 Meds/Results Medications: Active Medications Generic Name Dose Route Start Last Admin Trade Name Freq PRN Reason Stop Dose Admin Acetaminophen 500 mg 11/12/22 17:50 Acetaminophen 500 Mg Tablet PO Q6H PRN Mild Pain (1-3) or Fever Hydrocodone Bitart/Acetaminophen 1 tab 11/12/22 17:50 Hydrocodone/Acetaminophen (*Crx) 5-325 Mg Tablet PO Q4H PRN Pain Rated 4-6 Hydrocodone Bitart/Acetaminophen 1 tab 11/12/22 17:50 Hydrocodone/Acetaminophen (*Crx) 10-325 Mg Tablet PO Q4H PRN Pain Rated 7-10 Amlodipine Besylate 5 mg 11/14/22 12:20 11/15/22 09:34 Amlodipine Besylate 5 Mg Tablet PO 5 mg DAILY JACKSON Administration Enoxaparin Sodium 40 mg 11/13/22 09:00 11/15/22 09:34 Enoxaparin 40 Mg/0.4 Ml Syringe SUB-Q 40 mg DAILY JACKSON Administration Famotidine 20 mg 11/12/22 21:00 11/15/22 20:13 Famotidine 20 Mg/2 Ml Vial IV PUSH 20 mg Q12HR JACKSON Administration Piperacillin Sod/Tazobactam Sod 2.25 gm in 50 mls @ 100 mls/hr 11/12/22 00:00 11/16/22 05:13 Zosyn 2.25 Gm/Ns 50 Ml IVPB 100 mls/hr Q6H JACKSON Administration Sodium Chloride 1,000 mls @ 75 mls/hr 11/12/22 17:50 11/16/22 02:06 Normal Saline Iv IV CONT 75 mls/hr .[id number] JACKSON Administration Levothyroxine Sodium 125 mcg 11/12/22 06:30 11/16/22 05:13 Levothyroxine Sodium 125 Mcg Tablet PO
--- NOTE | 2022-11-16 07:53 | P.PNIM_ITS ---
Progress Note: A&P Assessment and Plan (1) Sepsis: Qualifiers: Sepsis acute organ dysfunction status: unspecified Sepsis type: sepsis due to unspecified organism Qualified Code(s): A41.9 - Sepsis, unspecified o rganism Code(s): A41.9 - Sepsis, unspecified organism Status: Resolved Assessment and Plan: * Presented to the ED with hypothermia, and leukocytosis with renal failures * Source of infection cholecystitis and UTI * IV antibiotics continued * Blood culture grew Ecoli * Continue Zosyn at this time * Consider changing to Augmentin * Current WBC is 11.9 * Stable (2) Acute cholecystitis: Code(s): K81.0 - Acute cholecystitis Status: Acute Assessment and Plan: * Post op day 4 * Wound and incisions stable * continue IV antibiotics for now * Pain medications on board * Currently stable (3) Acute renal failure: Qualifiers: Acute renal failure type: unspecified Qualified Code(s): N17.9 - Acute kidney failure, unspecified Code(s): N17.9 - Acute kidney failure, unspecified Status: Acute Assessment and Plan: * BUN/Cr elevated and peaked at 67/5.10 * Continuing to trend down currently 33/2.40 * Continue IV fluids * Nephrology consulted thank you for your help * Trend labs * Baseline is most likely 0.9 * Appear to be trending to baseline (4) Urinary tract infection: Qualifiers: Hematuria presence: with hematuria Urinary tract infection type: acute cystitis Qualified Code(s): N30.01 - Acute cystitis with hematuria Code(s): N39.0 - Urinary tract infection, site not specified Status: Acute Assessment and Plan: * Resolved * Urine culture shows no growth (5) Hyponatremia: Code(s): E87.1 - Hypo-osmolality and hyponatremia Status: Acute Assessment and Plan: * Acute hyponatremia noted 127 on admission, and currently 136 * Likely related to dehydration acute renal failure. * Nephrology consulted. thank you for your help * Stabilizing * Continue to trend (6) Essential (primary) hypertension: Code(s): I10 - Essential (primary) hypertension Status: Acute Assessment and Plan: * Currently BP is stable at 131/65 * Continue home medications amlodipine, and losartan * Trend BP * adjust therapy as indicated (7) Hypothyroidism, unspecified: Qualifiers: Hypothyroidism type: acquired Qualified Code(s): E03.9 - Hypothyroidism, unspecified Code(s): E03.9 - Hypothyroidism, unspecified Status: Chronic Assessment and Plan: * TSH elevated at 28.900. * T4 0.82. * Continue levothyroxine. * Have patient recheck in 6 weeks (8) E coli bacteremia: Code(s): R78.81 - Bacteremia; B96.20 - Unspecified Escherichia coli [E. coli] as the cause of diseases classified elsewhere Status: Acute Assessment and Plan: * Blood cultures grew Ecoli * Continue Zosyn * WBC currently 11.9 * consider changing to Augmentin 500 mg Q8H Time Spent With Patient Time: 41 minutes Time with patient: Greater than 35 minutes Subjective Date/time seen: 11/16/22 07:53 Interval history: Patient was admitted for f
--- NOTE | 2022-11-16 07:53 | PM.IMPN ---
Progress Note: A&P Assessment and Plan (1) Sepsis: Qualifiers: Sepsis acute organ dysfunction status: unspecified Sepsis type: sepsis due to unspecified organism Qualified Code(s): A41.9 - Sepsis, unspecified organism Code(s): A41.9 - Sepsis, unspecified organism Status: Resolved Assessment and Plan: Presented to the ED with hypothermia, and leukocytosis with renal failures Source of infection cholecystitis and UTI IV antibiotics continued Blood culture grew Ecoli Continue Zosyn at this time Consider changing to Augmentin Current WBC is 11.9 Stable (2) Acute cholecystitis: Code(s): K81.0 - Acute cholecystitis Status: Acute Assessment and Plan: Post op day 4 Wound and incisions stable continue IV antibiotics for now Pain medications on board Currently stable (3) Acute renal failure: Qualifiers: Acute renal failure type: unspecified Qualified Code(s): N17.9 - Acute kidney failure, unspecified Code(s): N17.9 - Acute kidney failure, unspecified Status: Acute Assessment and Plan: BUN/Cr elevated and peaked at 67/5.10 Continuing to trend down currently 33/2.40 Continue IV fluids Nephrology consulted thank you for your help Trend labs Baseline is most likely 0.9 Appear to be trending to baseline (4) Urinary tract infection: Qualifiers: Hematuria presence: with hematuria Urinary tract infection type: acute cystitis Qualified Code(s): N30.01 - Acute cystitis with hematuria Code(s): N39.0 - Urinary tract infection, site not specified Status: Acute Assessment and Plan: Resolved Urine culture shows no growth (5) Hyponatremia: Code(s): E87.1 - Hypo-osmolality and hyponatremia Status: Acute Assessment and Plan: Acute hyponatremia noted 127 on admission, and currently 136 Likely related to dehydration acute renal failure. Nephrology consulted. thank you for your help Stabilizing Continue to trend (6) Essential (primary) hypertension: Code(s): I10 - Essential (primary) hypertension Status: Acute Assessment and Plan: Currently BP is stable at 131/65 Continue home medications amlodipine, and losartan Trend BP adjust therapy as indicated (7) Hypothyroidism, unspecified: Qualifiers: Hypothyroidism type: acquired Qualified Code(s): E03.9 - Hypothyroidism, unspecified Code(s): E03.9 - Hypothyroidism, unspecified Status: Chronic Assessment and Plan: TSH elevated at 28.900. T4 0.82. Continue levothyroxine. Have patient recheck in 6 weeks (8) E coli bacteremia: Code(s): R78.81 - Bacteremia; B96.20 - Unspecified Escherichia coli [E. coli] as the cause of diseases classified elsewhere Status: Acute Assessment and Plan: Blood cultures grew Ecoli Continue Zosyn WBC currently 11.9 consider changing to Augmentin 500 mg Q8H Time Spent With Patient Time: 41 minutes Time with patient: Greater than 35 minutes Subjective Date/time seen: 11/16/22 07:53 Interval history: Patient was admitted for findings sepsis and acute cholecystitis as well as acute renal failure. Despite fluid resuscitation renal failure continued worsen. General surgery and Nephrology consulted. Patient to go to the operating room for cholecystectomy. Patient states that she came to the hospital for persistent nausea and vomiting that gets better when she does not eat solid food but then returns whenever she eats again. This is been going on for about week. Patient denies current abdominal pain or vomiting still has nausea. She denies chest pain shortness of breath fever chills cough constipation or diarrhea. 11/13: Patient underwent laparoscopic cholecystectomy yesterday is feeling w
[2022-11-16] MEDS: ENOXAPARIN 40 MG/0.4 ML SYRINGE SUB-Q (08:27)
[2022-11-16] MEDS: MAGNESIUM SULF 4 GM/WATER100ML 4 GM/100 ML BAG IVPB (08:27)
[2022-11-16] MEDS: POTASSIUM CHLORIDE 20 MEQ ER TABLET 40 MEQ PO (08:27)
[2022-11-16] MEDS: FAMOTIDINE 20 MG/2 ML VIAL IV PUSH (08:28)
[2022-11-16] MEDS: amLODIPine BESYLATE 5 MG TABLET PO (08:28)
--- NOTE | 2022-11-16 10:30 | P.DS_ITS ---
DS: Admitting Diagnosis Discharge Date 11/16/22 1030 Admitting Diagnosis Acute cholecystitis, UTI DS: Discharge Diagnosis Discharge Diagnosis (1) Sepsis: Qualifiers: Sepsis acute organ dysfunction status: unspecified Sepsis type: sepsis due to unspecified organism Qualified Code(s): A41.9 - Sepsis, unspecified organism Code(s): A41.9 - Sepsis, unspecified organism Status: Resolved Assessment and Plan: * Presented to the ED with hypothermia, and leukocytosis with renal failures * Source of infection cholecystitis and UTI * IV antibiotics continued * Blood culture grew Ecoli * Continue Zosyn at this time * Consider changing to Augmentin * Current WBC is 11.9 * Stable (2) Acute cholecystitis: Code(s): K81.0 - Acute cholecystitis Status: Acute Assessment and Plan: * Post op day 4 * Wound and incisions stable * continue IV antibiotics for now * Pain medications on board * Currently stable (3) Acute renal failure: Qualifiers: Acute renal failure type: unspecified Qualified Code(s): N17.9 - Acute kidney failure, unspecified Code(s): N17.9 - Acute kidney failure, unspecified Status: Acute Assessment and Plan: * BUN/Cr elevated and peaked at 67/5.10 * Continuing to trend down currently 33/2.40 * Continue IV fluids * Nephrology consulted thank you for your help * Trend labs * Baseline is most likely 0.9 * Appear to be trending to baseline (4) Urinary tract infection: Qualifiers: Hematuria presence: with hematuria Urinary tract infection type: acute cystitis Qualified Code(s): N30.01 - Acute cystitis with hematuria Code(s): N39.0 - Urinary tract infection, site not specified Status: Acute Assessment and Plan: * Resolved * Urine culture shows no growth (5) Hyponatremia: Code(s): E87.1 - Hypo-osmolality and hyponatremia Status: Acute Assessment and Plan: * Acute hyponatremia noted 127 on admission, and currently 136 * Likely related to dehydration acute renal failure. * Nephrology consulted. thank you for your help * Stabilizing * Continue to trend (6) Essential (primary) hypertension: Code(s): I10 - Essential (primary) hypertension Status: Acute Assessment and Plan: * Currently BP is stable at 131/65 * Continue home medications amlodipine, and losartan * Trend BP * adjust therapy as indicated (7) Hypothyroidism, unspecified: Qualifiers: Hypothyroidism type: acquired Qualified Code(s): E03.9 - Hypothyroidism, unspecified Code(s): E03.9 - Hypothyroidism, unspecified Status: Chronic Assessment and Plan: * TSH elevated at 28.900. * T4 0.82. * Continue levothyroxine. * Have patient recheck in 6 weeks (8) E coli bacteremia: Code(s): R78.81 - Bacteremia; B96.20 - Unspecified Escherichia coli [E. coli] as the cause of diseases classified elsewhere Status: Acute Assessment and Plan: * Blood cultures grew Ecoli * Continue Zosyn * WBC currently 11.9 * consider changing to Augmentin 500 mg Q8H DS: Summary Hospital Course Hospital Course: patient is a 56-y
--- NOTE | 2022-11-16 10:30 | PM.DS ---
DS: Admitting Diagnosis Discharge Date 11/16/22 1030 Admitting Diagnosis Acute cholecystitis, UTI DS: Discharge Diagnosis Discharge Diagnosis (1) Sepsis: Qualifiers: Sepsis acute organ dysfunction status: unspecified Sepsis type: sepsis due to unspecified organism Qualified Code(s): A41.9 - Sepsis, unspecified organism Code(s): A41.9 - Sepsis, unspecified organism Status: Resolved Assessment and Plan: Presented to the ED with hypothermia, and leukocytosis with renal failures Source of infection cholecystitis and UTI IV antibiotics continued Blood culture grew Ecoli Continue Zosyn at this time Consider changing to Augmentin Current WBC is 11.9 Stable (2) Acute cholecystitis: Code(s): K81.0 - Acute cholecystitis Status: Acute Assessment and Plan: Post op day 4 Wound and incisions stable continue IV antibiotics for now Pain medications on board Currently stable (3) Acute renal failure: Qualifiers: Acute renal failure type: unspecified Qualified Code(s): N17.9 - Acute kidney failure, unspecified Code(s): N17.9 - Acute kidney failure, unspecified Status: Acute Assessment and Plan: BUN/Cr elevated and peaked at 67/5.10 Continuing to trend down currently 33/2.40 Continue IV fluids Nephrology consulted thank you for your help Trend labs Baseline is most likely 0.9 Appear to be trending to baseline (4) Urinary tract infection: Qualifiers: Hematuria presence: with hematuria Urinary tract infection type: acute cystitis Qualified Code(s): N30.01 - Acute cystitis with hematuria Code(s): N39.0 - Urinary tract infection, site not specified Status: Acute Assessment and Plan: Resolved Urine culture shows no growth (5) Hyponatremia: Code(s): E87.1 - Hypo-osmolality and hyponatremia Status: Acute Assessment and Plan: Acute hyponatremia noted 127 on admission, and currently 136 Likely related to dehydration acute renal failure. Nephrology consulted. thank you for your help Stabilizing Continue to trend (6) Essential (primary) hypertension: Code(s): I10 - Essential (primary) hypertension Status: Acute Assessment and Plan: Currently BP is stable at 131/65 Continue home medications amlodipine, and losartan Trend BP adjust therapy as indicated (7) Hypothyroidism, unspecified: Qualifiers: Hypothyroidism type: acquired Qualified Code(s): E03.9 - Hypothyroidism, unspecified Code(s): E03.9 - Hypothyroidism, unspecified Status: Chronic Assessment and Plan: TSH elevated at 28.900. T4 0.82. Continue levothyroxine. Have patient recheck in 6 weeks (8) E coli bacteremia: Code(s): R78.81 - Bacteremia; B96.20 - Unspecified Escherichia coli [E. coli] as the cause of diseases classified elsewhere Status: Acute Assessment and Plan: Blood cultures grew Ecoli Continue Zosyn WBC currently 11.9 consider changing to Augmentin 500 mg Q8H DS: Summary Hospital Course Hospital Course: patient is a 56-year-old female with a past medical history of hypertension, diabetes who presented to the ED with complaints nausea, vomiting and abdominal pain. CT of the abdomen pelvis was consistent with acute cholecystitis. Chest x-ray showed no cardiopulmonary disease. Ultrasound of the abdomen showed cholelithiasis. patient is postop day 4 of cholecystectomy. General surgery is consulted. Patient was also on Zosyn IV For bacteremia that grew E coli. UTI was ruled out with no growth in the culture. Sodium was noted to be 127 upon arrival is currently stable at 136. Patient has been slowly patient had diet. She is able to tolerate p.o. intake. pain has been minimal and patient reyes
== END 2022-11-16 13:20 | disposition home or self-care (01) | DRG 854 ==
LOC: ANHED 16:22 → ANH2MED 17:36
PROVIDERS: Nurse Practitioner; Surgery; Admitting Provider Hospitalist; Emergency Provider Physician Assistant; PCP Family Medicine; Visit Provider Nurse Practitioner
PROC: 0FT44ZZ Resection of Gallbladder, Percutaneous Endoscopic Approach (ICD-10-PCS; CPT 47562; principal; 2022-11-12 15:00)
DX: A41.9 Sepsis, unspecified organism (principal); E87.1 Hypo-osmolality and hyponatremia; N17.9 Acute kidney failure, unspecified; K80.00 Calculus of gallbladder with acute cholecystitis without obstruction; Z68.41 Body mass index [BMI] 40.0-44.9, adult; N30.01 Acute cystitis with hematuria; K82.A1 Gangrene of gallbladder in cholecystitis; B96.20 Unspecified Escherichia coli [E. coli] as the cause of diseases classified elsewhere; E86.0 Dehydration; E03.9 Hypothyroidism, unspecified; E11.9 Type 2 diabetes mellitus without complications; E87.6 Hypokalemia; E78.5 Hyperlipidemia, unspecified; E66.01 Morbid (severe) obesity due to excess calories; I10 Essential (primary) hypertension; K76.0 Fatty (change of) liver, not elsewhere classified; Z20.822 Contact with and (suspected) exposure to COVID-19
CPT/HCPCS: 36415; 71045; 74176; 76705; 80048; 80053; 80069; 80076; 81001; 83036; 83605; 83690; 83735; 84439; 84443; 84480; 85025; 86850; 86900; 86901; 87040; 87077; 87086; 87186; 87636; 88304; 93005; 96361; 96375; 99285; A9270; C1713; G0378; J1100; J1650; J2405; J2543; J2704; J2710; J3010; J3475; J3480; J7030; J7040; J7120

== ENCOUNTER 2022-12-03 09:55 | Outpatient (CLI) | payer OTHER, SELFPAY ==
[2022-12-03 10:20] LABS: Basophils Absolute Auto 0.1 K/mm3 (0.0-0.1); Basophils Percent Auto 1.1 % (0.2-1.2); Eosinophils Absolute Auto 0.2 K/mm3 (0-0.3); Eosinophils Percent Auto 3.4 % (0-4.4); Hematocrit 38.7 % (37.0-47.0); Hemoglobin 12.2 g/dL (12.0-15.0); Immature Granulocyte Absolute 0.02 K/mm3 (0.00-0.031); Immature Granulocyte Percent A 0.3 % (0-0.5); Lymphocytes Absolute Auto 2.28 K/mm3 (0.9-3.2); Lymphocytes Percent Auto 32.8 % (18.3-44.2); Mean Corpuscular HGB Conc 31.5 g/dl (32-36); Mean Corpuscular Hemoglobin 28.6 pg (26-34); Mean Corpuscular Volume 90.6 fl (80-100); Monocytes Absolute Auto 0.6 K/mm3 (0.1-0.6); Monocytes Percent Auto 8.5 % (2.6-8.5); Neutrophils Absolute Auto 3.8 K/mm3 (1.3-6.7); Neutrophils Percent Auto 53.9 % (45.5-73.1); Platelet Count Result 323 k/mm3 (150-375); Red Blood Count 4.27 M/mm3 (4.2-5.4); Red Cell Distribution Width 13.4 % (11.5-14.5)
[2022-12-03 10:46] LABS: Alanine Aminotransferase 35 U/L (6-35); Albumin Level 4.3 g/dL (3.5-5.1); Alkaline Phosphatase 130 U/L (38-126); Anion Gap 10 mmol/L (8-16); Aspartate Amino Transferase 23 U/L (14-36); Bilirubin,Total 0.6 mg/dL (0.2-1.3); Blood Urea Nitrogen 26 mg/dL (7-17); Carbon Dioxide 25 mmol/L (22-30); Chloride 100 mmol/L (98-107); Estimated Glomerular Filt Rate 57; Glucose 235 mg/dL (65-110); Potassium 4.6 mmol/L (3.4-5.0); Sodium 135 mmol/L (137-145)
== END 2022-12-03 09:56 | disposition home or self-care (01) ==
PROVIDERS: PCP Family Medicine; Visit Provider Surgery
DX: K80.19 Calculus of gallbladder with other cholecystitis with obstruction (principal)
CPT/HCPCS: 36415; 80053; 85025

== ENCOUNTER 2022-12-07 14:09 | Outpatient (CLI) | payer OTHER, SELFPAY ==
--- NOTE | ~2022-12-07 | CT_ITS ---
EXAMINATION: CT abdomen w con INDICATION: Right upper quadrant pain, recent cholecystectomy TECHNIQUE: Computed tomographic images of the abdomen were obtained after the administration of 100 c c of Omnipaque 350 intravenous contrast. The dose-length product (DLP) was 736.10 mGy-cm. Automated e xposure control and iterative reconstruction technique were employed. COMPARISON: 11/11/2022 FINDINGS: Minimal dependent atelectasis is present in the lung bases. The heart size is normal. There are changes of interval cholecystectomy. Linear areas of infiltration in the subcutaneous fat of the abdominal wall are consistent with laparoscopic port tracts. Cysts of the liver measure up to 8 mm. The spleen, pancreas, and adrenal glands are normal. The mildly dilated common bile duct measures up to 8 mm. There are multiple areas of scarring in the right kidney. The left kidney is unremarkable. T here is a 2 mm nonobstructing stone of the right kidney lower pole. There are no pathologically enlar ged abdominal lymph nodes. No abdominal fluid is identified. The appendix is normal. There is a small umbilical hernia containing fat. No free intraperitoneal gas or evidence of bowel obstruction. IMPRESSION: 1. Mildly dilated common bile duct of unclear etiology or significance. Consider correlation with galina er function tests. 2. Interval cholecystectomy. Reviewed, dictated and finalized at location F. IMPRESSION: 1. Mildly dilated common bile duct of unclear etiology or significance. Conside r correlation with liver function tests. 2. Interval cholecystectomy.
[2022-12-07 14:27] LABS: Estimated Glomerular Filt Rate 57
== END 2022-12-07 14:10 ==
LOC: MICIMG 14:10
PROVIDERS: PCP Surgery; Visit Provider Surgery
DX: K81.0 Acute cholecystitis (principal); R10.11 Right upper quadrant pain; Z90.49 Acquired absence of other specified parts of digestive tract
CPT/HCPCS: 74160; Q9967

== ENCOUNTER 2023-03-30 17:34 | Inpatient (IN) | payer OTHER, SELFPAY ==
[2023-03-30] VITALS (29 sets, daily range): BP systolic 128–189; BP diastolic 67–140; PULSE 72–112; RESP 9–23; TEMP 36.4–36.6; O2SAT 97–100; BMI 44.5
--- NOTE | ~2023-03-30 | XR_ITS ---
Portable chest x-ray Comparison: 11/12/2022 Clinical History: Chest pain Findings: Lungs are clear, without focal consolidation or pleural effusion. Cardiomediastinal silho uette is stable. Bones and soft tissues are unremarkable. Impression: Clear lungs. Reviewed, dictated and finalized at [facility]. 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
--- NOTE | 2023-03-30 17:36 | ECG_ITS ---
Measurements Intervals [place] Rate: 107 P: 65 NV: 177 QRS: 39 QRSD: 92 T: 50 QT: 348 QTc: 465 Interpretive Statements SINUS TACHYCARDIA POSSIBLE LEFT ATRIAL ENLARGEMENT BASELINE ARTIFACT- I, II, AVR, V1 ABNORMAL ECG COMPARED TO ECG 11/12/2022 09:25:24 SINUS TACHYCARDIA NOW PRESENT Electronically Signed On 03-30-2023 17:59:50 [employer] by Richard Mckenna D.O.
[2023-03-30 17:52] LABS: Basophils Absolute Auto 0.1 K/mm3 (0.0-0.1); Basophils Percent Auto 0.9 % (0.2-1.2); Eosinophils Absolute Auto 0.3 K/mm3 (0-0.3); Eosinophils Percent Auto 3.1 % (0-4.4); Hematocrit 44.9 % (37.0-47.0); Immature Granulocyte Absolute 0.04 K/mm3 (0.00-0.031); Immature Granulocyte Percent A 0.5 % (0-0.5); Lymphocytes Absolute Auto 3.49 K/mm3 (0.9-3.2); Lymphocytes Percent Auto 39.9 % (18.3-44.2); Mean Corpuscular HGB Conc 31.2 g/dl (32-36); Mean Corpuscular Hemoglobin 27.8 pg (26-34); Mean Corpuscular Volume 89.1 fl (80-100); Mean Platelet Volume 10.1 fl (7.4-10.4); Monocytes Absolute Auto 0.8 K/mm3 (0.1-0.6); Monocytes Percent Auto 8.7 % (2.6-8.5); Neutrophils Absolute Auto 4.1 K/mm3 (1.3-6.7); Neutrophils Percent Auto 46.9 % (45.5-73.1); Platelet Count Result 297 k/mm3 (150-375); Red Blood Count 5.04 M/mm3 (4.2-5.4); Red Cell Distribution Width 13.5 % (11.5-14.5); White Blood Count 8.8 K/mm3 (4.5-10.0)
[2023-03-30] MEDS: ASPIRIN 81 MG CHEWABLE TABLET 324 MG PO (17:58)
[2023-03-30 18:02] LABS: INR 0.9; Prothrombin Time 12.6 Seconds (11.1-14.7)
[2023-03-30 18:03] LABS: Alanine Aminotransferase 30 U/L (6-35); Albumin Level 4.7 g/dL (3.5-5.1); Alkaline Phosphatase 83 U/L (38-126); Anion Gap 14 mmol/L (8-16); Aspartate Amino Transferase 18 U/L (14-36); Bilirubin,Total 0.6 mg/dL (0.2-1.3); Blood Urea Nitrogen 25 mg/dL (7-17); Calcium 9.8 mg/dL (8.4-10.2); Carbon Dioxide 23 mmol/L (22-30); Chloride 102 mmol/L (98-107); Estimated CRCL calculation 80 ml/min; Estimated Glomerular Filt Rate > 60; Glucose 146 mg/dL (65-110); Lipase 82 U/L (23-300); Partial Thromboplastin Time 29.9 SECONDS (22.3-36.8); Sodium 139 mmol/L (137-145)
--- NOTE | 2023-03-30 18:09 | ED.CHESTPAIN ---
HPI - Chest Pain General Chief Complaint: Chest Pain <BRIEN Johnson Last Filed: 03/31/23 00:18> Stated Complaint: chest pain <BRIEN Johnson Last Filed: 03/31/23 00:18> Time Seen by Provider: 03/30/23 17:58 <BRIEN Johnson Last Filed: 03/31/23 00:18> Source: patient <BRIEN Johnson Last Filed: 03/31/23 00:18> Mode of arrival: ambulatory <BRIEN Johnson Last Filed: 03/31/23 00:18> Limitations: no limitations <BRIEN Johnson Last Filed: 03/31/23 00:18> History of Present Illness HPI narrative: Patient is a 57-year-old female who presents the ED with report of chest pain. Patient reports she began feeling unwell today around 4:00 p.m.. She states she could feel her pulse in her neck, felt as though her blood pressure was elevated. She took her blood pressure at that time and states it was around 140s over 80s. She then developed chest pain approximately 1 hour ago, described as a mild aching in her midsternal chest. States her blood pressure was 150s over 90s at that time. She then drove herself to the ED. She states pain lasted for approximately 20 minutes until she was settling into the ED room and has since resolved. Denies any pain currently. Patient denied any radiation of the pain. Denied neck or back pain. Denied shortness of breath, nausea, diaphoresis. Patient has history of hypertension, on losartan and amlodipine. Reports diet controlled DM. Denies history of hyperlipidemia, previous coronary disease. Unknown family history as patient is adopted. <BRIEN Johnson Last Filed: 03/31/23 00:18> Related Data Allergies/Adverse Reactions: Allergies Allergy/AdvReac Type Severity Reaction Status Date / Time wheat Allergy Unknown Unknown Verified 01/09/23 10:28 SOY Allergy Unknown Unknown Uncoded 01/09/23 10:28 <BRIEN Johnson Last Filed: 03/31/23 00:18> Review of Systems Review of Systems: CONSTITUTIONAL: Denies fever, chills, or sweats. CARDIOVASCULAR: See HPI. RESPIRATORY: Denies cough or dyspnea. GASTROINTESTINAL: Denies abdominal pain, nausea, vomiting. MUSCULOSKELETAL: Denies back pain, extremity pain, myalgia. <Denice Amador PA-C - Last Filed: 03/31/23 00:18> All systems reviewed & are unremarkable except as noted in HPI and below <Denice Amador PA-C - Last Filed: 03/31/23 00:18> [facility] Past Medical History Medical History: Medical History Diabetes mellitus type 2, controlled Essential (primary) hypertension Wheat allergy <Denice Amador PA-C - Last Filed: 03/31/23 00:18> Surgical History Surgical History: Surgical History History of extraction of renal calculus Hx laparoscopic cholecystectomy on 11/12/22 RAAD <Denice Amador PA-C - Last Filed: 03/31/23 00:18> Family History Family History: Family History Other Adopted <Denice Amador PA-C - Last Filed: 03/31/23 00:18> Social History Social History: Social History Social History: The patient is a septic pump truck driver. She currently works for [employer]. She has 1 son and is . She states that she has never used tobacco. She denies any marijuana alcohol or other substances. Code status full code Years smoked: 1 Smoking status: Never smoker Tobacco type: cigarettes Second hand tobacco smoke exposure: No Smoking end date: 03/25/82 Alcohol intake: never Substance use: never Substance use type: does not use Do You Feel Safe in your Home?: Yes Lack of Transportation: No Lack of Food: Never True Current Housing: I Have Housing Concerned About Future Housi
[2023-03-30 18:31] LABS: Troponin I 0.112 ng/mL (0.000-0.034)
[2023-03-30 18:50] LABS: D Dimer 0.45 ug/mL (<0.48)
[2023-03-30] MEDS: HEPARIN SODIUM 5,000 UNITS/ML VIAL 4000 UNITS IV PUSH (19:13)
[2023-03-30 19:17] LABS: Hemoglobin A1C 7.2 % (<5.7)
--- NOTE | 2023-03-30 19:22 | PC.NURSE ---
this rn assumed care of patient. this rn took patient report from beatrice Sims.
[2023-03-30] MEDS: HEPARIN SOD/D5W 100 UNITS/ML 25,000 UNITS/250 ML BAG 10 UNITS IV CONT (19:29)
--- NOTE | 2023-03-30 19:33 | PM.CNCAR ---
Assessment and Plan Assessment and plan (1) Non-ST elevation [place] (NSTEMI): Code(s): I21.4 - Non-ST elevation (NSTEMI) myocardial infarction Status: Acute Assessment and Plan: Chest pain resolved. EKG shows borderline ST depression in anterolat/high lat leads. She got aspirin 324 mg in ED. Starting heparin drip. Start Metoprolol Succinate 25 mg PO BID. Start Atorvastatin 80 mg daily. Obtain echo on Saturday. Plan for LHC on Saturday. (2) Hyperlipidemia: Code(s): E78.5 - Hyperlipidemia, unspecified Status: Acute Assessment and Plan: Start Atorvastatin. (3) Essential (primary) hypertension: Code(s): I10 - Essential (primary) hypertension Status: Acute Assessment and Plan: High. Resume home BP medication. (4) Diabetes mellitus type 2, controlled: Code(s): E11.9 - Type 2 diabetes mellitus without complications Status: Acute Assessment and Plan: Manage as per hospitalist. History of Present Illness History of Present Illness Consult date/time: 03/30/23 19:33 Reason For Visit: chest pain Narrative: 57 yr old woman presents to ER with chest pain. She has a history of DM, hypertension, dyslipidemia. Reports she checked her BP today as she thought it would be high as she was not feeling well, and it was fair. Then she got squeezing mid chest pain lasting about an hour. Chest pain has since resolved. No radiation of pain. Normally she thinks she can walk 1-2 blocks. Denies orthopnea, PND, edema, dizziness, palpitations. Review of Systems Review of Systems: All systems reviewed & are unremarkable except as noted in HPI and below Constitutional: Constitutional: Reports as per HPI, Denies chills and Denies fever(s) Cardiovascular: Cardiovascular: Reports as per HPI and Reports chest pain Respiratory: Respiratory: Reports as per HPI and Denies dyspnea Gastrointestinal: Gastrointestinal: Reports as per HPI and Denies abdominal pain Genitourinary: Genitourinary: Reports as per HPI and Denies dysuria Musculoskeletal: Musculoskeletal: Reports as per HPI Neurologic: Reports as per HPI, Denies dizziness and Denies syncope [facility] Past Medical History Medical History Diabetes mellitus type 2, controlled Essential (primary) hypertension Wheat allergy Surgical History Surgical History History of extraction of renal calculus Hx laparoscopic cholecystectomy on 11/12/22 RAAD Family History Family History Other Adopted Social History Social History Social History: The patient is a long haul truck driver. She currently works for [employer]. She has 1 son and is . She states that she has never used tobacco. She denies any marijuana alcohol or other substances. Code status full code Years smoked: 1 Smoking status: Never smoker Tobacco type: cigarettes Second hand tobacco smoke exposure: No Smoking end date: 03/25/82 Alcohol intake: never Substance use: never Substance use type: does not use Lack of Transportation: No Lack of Food: Never True Current Housing: I Have Housing Concerned About Future Housing: No Difficulty Paying Gas/Electric Bills: No Difficulty Paying for Meds: No Currently Unemployed: No Education: Bachelor's Degree Difficulty w/ Childcare or Family Care: No Living arrangements: with family Occupation/Education: occupation Gender identity (if verbalized by the patient): Female Sexual Orientation (if Verbalized by the Patient): Straight or Heterosexual Spiritual care concerns: No Meds Home Medications and Allergies Home Medications Medication Instructions Recorded Confirmed Type levothyroxine 125 mcg tablet 125 mcg PO DAILY #9
[2023-03-30] MEDS: METOPROLOL TARTRATE 25 MG TABLET PO (20:29)
--- NOTE | 2023-03-30 20:43 | ECG_ITS ---
Measurements Intervals [place] Rate: 89 P: 53 NV: 183 QRS: 20 QRSD: 89 T: 30 QT: 353 QTc: 431 Interpretive Statements SINUS RHYTHM POSSIBLE LEFT ATRIAL ENLARGEMENT BORDERLINE ECG COMPARED TO ECG 03/30/2023 17:44:31 SINUS RHYTHM NOW PRESENT Electronically Signed On 03-31-2023 16:02:23 YOUTH COUNSELOR by Richard Mckenna D.O.
[2023-03-30 21:10] LABS: Troponin I 0.212 ng/mL (0.000-0.034)
[2023-03-30] MEDS: ATORVASTATIN 40 MG TABLET 80 MG PO (21:13)
--- NOTE | 2023-03-30 23:10 | ADMGEN ---
This patient, Zahraa Thomas, was admitted to IMU Room 210-01 at 2305. Patient/family oriented to hospital policies and general routines including ID bracelet, bed and alarms, visiting hours, pain management, procedures, bathroom and other care routines, personal items, smoking policy, room service/diet, and visiting hours. Information on how to activate the Rapid Response Team has been discussed. Patient/Family are encouraged to report perceived risks to care and to ask questions if they do not understand what they are told or what they should do.
--- NOTE | 2023-03-30 23:23 | PC.NURSE ---
Daughter Darryl Shiva [phone], second contact.
--- NOTE | 2023-03-30 23:56 | PM.IMHP ---
H&P: HPI History of Present Illness Date/Time: 03/30/23 22:05 Chief Complaint: Chest pain Narrative: 57-year-old female with a past medical history of morbid obesity, hyperlipidemia, essential hypertension and diet-controlled diabetes mellitus who presented to the ER with substernal chest pain. Patient reports that she was at rest not exerting herself when she developed substernal chest pain 4 to 5/10 in intensity. The pain was constant aching in nature. She made decision to drive herself to the ER. By the time she was ready to leave her home her chest pain had already decreased in intensity in by the time she arrived to the ER and had resolved. She received full-dose aspirin on arrival to the ER. Her initial troponin was elevated inter he EKG demonstrated nonspecific ST changes. She denies any associated shortness of breath, diaphoresis, nausea, reflux. She was having associated sensation of throbbing pulse. She checked her blood pressure her blood pressure was marginally elevated above her baseline. She reports her baseline blood pressures are usually in the 120s over 70s. Today her blood pressures have been between the 140-150 range. She usually takes her antihypertensives in the evening her blood pressure did improve after she took her antihypertensive but then rebounded. She denies any palpitations but did notice that her heart was beating faster than usual. She was in mild sinus tachycardia on arrival to the ER. She does drink a moderate amount of caffeine but denies any drug use or tobacco use. Her family medical history is unknown due to the being adopted. She has never had chest pain before his never had a stress test. She denies any lower extremity swelling or calf pain. She has a recent travel. Review of Systems Review of Systems: 12 systems were reviewed with pertinent positives and negatives per HPI. Except as documented in the HPI, all other systems were reviewed and are negative. [facility] Past Medical History Medical History (Updated 03/31/23 @ 05:54 by Mary Sheth DO) Diabetes mellitus type 2, controlled Essential (primary) hypertension Hyperlipidemia Microalbuminuria due to type 2 diabetes mellitus Morbid obesity with BMI of 45.0-49.9, adult Wheat allergy Surgical History Surgical History (Updated 03/31/23 @ 05:43 by Mary Sheth DO) History of extraction of renal calculus Hx laparoscopic cholecystectomy on 11/12/22 due to sepsis from acute gangrenous cholecystitis with acute renal failure with concomitant biliary drain placement due to abscess and E coli bacteremia Family History Family History Other Adopted Social History Social History (Updated 03/31/23 @ 05:50 by Mary Sheth, DO) Social History: 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 She has 1 son and is . She briefly used tobacco in minimal amounts in early 20s. she denies any marijuana alcohol or other substances. Code status: full code Years smoked: 1 Smoking status: Former smoker Tobacco type: cigarettes Second hand tobacco smoke exposure: No Smoking end date: 03/25/82 Alcohol intake: never Substance use: never Substance use type: does not use Do You Feel Safe in your Home?: Yes Lack of Transportation: No Lack of Food: Never True Current Housing: I Have Housing Concerned About Future Housing: No Difficulty Paying Gas/Electric Bills: No Difficulty Paying for Meds: No Currently Unemployed: No Education: Bachelor's Degree Difficulty w/ Childcare or Family Care: No Living arrangements: with family Occupation/Education: occupation Gender identity (if verbalized by the patient): Female Sexual Orientation (if Verbalized by the Patient): Stra
[2023-03-31] VITALS (14 sets, daily range): BP systolic 124–134; BP diastolic 56–65; PULSE 71–100; RESP 12–20; TEMP 36–36.9; O2SAT 95–98
[2023-03-31 00:14] LABS: Troponin I 0.355 ng/mL (0.000-0.034)
[2023-03-31 01:57] LABS: Partial Thromboplastin Time 43.6 SECONDS (22.3-36.8)
[2023-03-31] MEDS: HEPARIN SODIUM 5,000 UNITS/ML VIAL 4000 UNITS IV PUSH (02:07)
[2023-03-31] MEDS: LEVOTHYROXINE SODIUM 125 MCG TABLET PO (06:51)
[2023-03-31 08:07] LABS: Glucose Point of Care 177 mg/dl (65-105)
[2023-03-31 08:16] LABS: Basophils Absolute Auto 0.1 K/mm3 (0.0-0.1); Basophils Percent Auto 0.9 % (0.2-1.2); Eosinophils Absolute Auto 0.3 K/mm3 (0-0.3); Eosinophils Percent Auto 4.3 % (0-4.4); Hematocrit 43.4 % (37.0-47.0); Hemoglobin 13.6 g/dL (12.0-15.0); Immature Granulocyte Absolute 0.01 K/mm3 (0.00-0.031); Immature Granulocyte Percent A 0.1 % (0-0.5); Lymphocytes Absolute Auto 1.86 K/mm3 (0.9-3.2); Lymphocytes Percent Auto 27.4 % (18.3-44.2); Mean Corpuscular HGB Conc 31.3 g/dl (32-36); Mean Corpuscular Hemoglobin 27.9 pg (26-34); Mean Corpuscular Volume 89.1 fl (80-100); Mean Platelet Volume 10.3 fl (7.4-10.4); Monocytes Absolute Auto 0.6 K/mm3 (0.1-0.6); Monocytes Percent Auto 8.7 % (2.6-8.5); Neutrophils Percent Auto 58.6 % (45.5-73.1); Platelet Count Result 273 k/mm3 (150-375); Red Blood Count 4.87 M/mm3 (4.2-5.4); Red Cell Distribution Width 13.7 % (11.5-14.5); White Blood Count 6.8 K/mm3 (4.5-10.0)
[2023-03-31 09:14] LABS: Partial Thromboplastin Time 62.7 SECONDS (22.3-36.8)
--- NOTE | 2023-03-31 09:14 | PM.PNCARD ---
Progress Note: A&P Assessment and Plan (1) Non-ST elevation OH (NSTEMI): Code(s): I21.4 - Non-ST elevation (NSTEMI) myocardial infarction Status: Acute Assessment and Plan: Chest pain resolved. EKG shows borderline ST depression in anterolat/high lat leads. On aspirin daily. On heparin drip. Started Metoprolol Succinate 25 mg PO BID. Started Atorvastatin 80 mg daily. She had nausea for 2 hours post dose and had this in remote past with statin. Will try low dose 10 mg qhs and see how she tolerates it. Obtain echo tomorrow. Plan for LHC tomorrow. Discuss risks/benefits/alternative to LHC and she is agreeable to it. Keep her NPO after midnight. (2) Hyperlipidemia: Code(s): E78.5 - Hyperlipidemia, unspecified Status: Acute Assessment and Plan: Started Atorvastatin. (3) Essential (primary) hypertension: Code(s): I10 - Essential (primary) hypertension Status: Acute Assessment and Plan: Stable. (4) Diabetes mellitus type 2, controlled: Qualifiers: Diabetes mellitus long-term insulin use: without long-term use Diabetes mellitus complication status: without complication Qualified Code(s): E11.9 - Type 2 diabetes mellitus without complications Code(s): E11.9 - Type 2 diabetes mellitus without complications Status: Acute Assessment and Plan: Manage as per hospitalist. Subjective Date/time seen: 03/31/23 09:14 Interval history: No more chest pains. No sob. Exam Const: General: cooperative, healthy appearing, comfortable and obese Nutritional Appearance: obese Orientation/consciousness: oriented to person, oriented to place and oriented to time Resp: Auscultation: clear to auscultation bilaterally, no crackles, no rales, no rhonchi and no wheezes Cardio: Rate: regular rate Rhythm: regular rhythm Heart sounds: no murmurs Peripheral pulses: dorsalis pedis present Neuro: General: oriented to person, oriented to place and oriented to time Extrem: Right lower extremity: no edema Left lower extremity: no edema Objective Data Vital Signs Vital Signs: Vital Signs - 24 hr 03/30/23 17:36 03/30/23 17:59 03/30/23 18:15 Temperature 98 F Pulse Rate 110 H 111 H 106 H Respiratory Rate 16 23 H Blood Pressure 189/140 H Pulse Oximetry 99 100 Oxygen Delivery 03/30/23 19:00 03/30/23 19:01 03/30/23 19:15 Temperature Pulse Rate 101 H 112 H 100 Respiratory Rate 10 L 10 L 17 Blood Pressure 163/73 H Pulse Oximetry 99 99 100 Oxygen Delivery 03/30/23 19:30 03/30/23 19:31 03/30/23 20:28 Temperature Pulse Rate 99 105 H 96 Respiratory Rate 12 18 14 Blood Pressure 160/85 H 145/67 H Pulse Oximetry 100 100 99 Oxygen Delivery 03/30/23 20:29 03/30/23 19:32 03/30/23 19:45 Temperature Pulse Rate 100 104 H 104 H Respiratory Rate 20 14 Blood Pressure Pulse Oximetry 100 99 Oxygen Delivery 03/30/23 20:00 03/30/23 20:01 03/30/23 20:15 Temperature Pulse Rate 99 107 H 103 H Respiratory Rate 13 20 14 Blood Pressure 145/67 H Pulse Oximetry 99 99 100 Oxygen Delivery 03/30/23 20:36 03/30/23 20:45 03/30/23 21:00 Temperature Pulse Rate 99 97 86 Respiratory Rate 21 H 15 13 Blood Pressure Pulse Oximetry 98 98 99 Oxygen Delivery 03/30/23 21:01 03/30/23 21:02 03/30/23 21:24 Temperature Pulse Rate 95 98 91 Respiratory Rate 21 H 15 14 Blood Pressure 128/81 Pulse Oximetry 97 98 100 Oxygen Delivery 03/30/23 21:30 03/30/23 21:45 03/30/23 22:00 Temperature Pulse Rate 78 83 72 Respiratory Rate 11 L 9 L 11 L Blood Pressure Pulse Oximetry 99 100 98 Oxygen Delivery 03/30/23 22:01 03/30/23 22:02 03/30/23 22:15 Temperature Pulse Rate 80 78 84 Respiratory Rate 11 L 11 L 14 Blood Pressure 141/76 H 138/80 Pulse Oximetry 98 99 99 Oxygen Delivery 03/30/23 23:05 03/30/23 23:23 03/31/23 00:00 Temperature 97.6 F 97.6 F Pulse Rate 88 88 Res
[2023-03-31] MEDS: METOPROLOL TARTRATE 25 MG TABLET PO ×2 (09:27→20:29)
[2023-03-31] MEDS: ASPIRIN 81 MG ENTERIC TABLET PO (09:27)
[2023-03-31] MEDS: LOSARTAN POTASSIUM 25 MG TABLET PO (09:27)
[2023-03-31] MEDS: amLODIPine BESYLATE 5 MG TABLET PO (09:27)
[2023-03-31] MEDS: HEPARIN SODIUM 5,000 UNITS/ML VIAL 3500 UNITS IV PUSH ×2 (09:32→22:15)
--- NOTE | 2023-03-31 10:12 | PM.IMPN ---
Progress Note: A&P Assessment and Plan (1) Non-ST elevation [place] (NSTEMI): Code(s): I21.4 - Non-ST elevation (NSTEMI) myocardial infarction Status: Acute (2) Essential (primary) hypertension: Code(s): I10 - Essential (primary) hypertension Status: Acute (3) Diabetes mellitus type 2, controlled: Qualifiers: Diabetes mellitus group home insulin use: without superintendent marine oil terminal use Diabetes mellitus complication status: without complication Qualified Code(s): E11.9 - Type 2 diabetes mellitus without complications Code(s): E11.9 - Type 2 diabetes mellitus without complications Status: Acute (4) Unspecified asthma: Qualifiers: Asthma severity: mild Asthma persistence: intermittent Asthma complication type: uncomplicated Qualified Code(s): J45.20 - Mild intermittent asthma, uncomplicated Code(s): J45.909 - Unspecified asthma, uncomplicated Status: Acute (5) Hyperlipidemia: Qualifiers: Hyperlipidemia type: pure hypercholesterolemia Qualified Code(s): E78.00 - Pure hypercholesterolemia, unspecified Code(s): E78.5 - Hyperlipidemia, unspecified Status: Acute (6) Morbid obesity with BMI of 45.0-49.9, adult: Code(s): E66.01 - Morbid (severe) obesity due to excess calories; Z68.42 - Body mass index [BMI] 45.0-49.9, adult Status: Acute Plan Patient has had a non STEMI. She has been started on daily aspirin therapy and heparin drip. Cardiology has been consulted. Patient had recent lipid panel last month so no need to repeat. Patient was started on statin therapy but she states that she becomes severely nauseous with statin it is already become nauseous since receiving the 1st dose. Patient's blood pressures were mildly elevated and she had some mild tachycardia. Metoprolol was added to her medication regimen. Cardiology has already evaluated the patient appreciate recommendations. Echocardiogram has been ordered for Saturday. The patient will likely undergo cardiac catheterization Saturday. Will continue heart healthy consistent carbohydrate diet. Patient does have diabetes per glucoses are controlled. She states she usually has more trouble controlling her glucoses here because the dietary options available at our facility a limited for her due to her avoidance of wheat because it causes asthma exacerbations. She also usually avoids any processed sugars. Will add low-dose sliding scale insulin with Accu-Cheks a.c. HS and hypoglycemia protocol as needed. Will continue home levothyroxine. Patient is morbidly obese and is aware that she would benefit from weight loss. She states she has been eating a carnivore diet at home because her multiple food allergies. Diet will be consistent carbohydrate heart healthy while hospitalized. Patient does have a crowded posterior oropharynx and would benefit from polysomnogram. Will check ApneaLink while hospitalized. Patient has been admitted as observation status. Time Spent With Patient Time with patient: 25 - 35 minutes Subjective Date/time seen: 03/31/23 10:12 Interval history: This is a 57-year-old female patient admitted to the hospital for chest pain with rising troponins. Patient reports she currently has no more chest pains and no shortness of breath. Review of Systems Review of Systems: 12 systems were reviewed with pertinent positives and negatives per HPI. Except as documented in the HPI, all other systems were reviewed and are negative. Exam Narrative: Weight 132.5 kg BMI 45 point Const: Other: Morbidly obese, no acute distress, appears stated age HENMT: Other: Crowded posterior oropharynx, no oral pharyngeal erythema, head is normocephalic atraumatic Eyes: Other: Pupils are equal and reactive, no scleral icterus, no conjunctival pallor Neck: Other: No JVD, large neck circumference, supple Resp: Other: Clear to auscultation bilate
[2023-03-31 11:48] LABS: Glucose Point of Care 151 mg/dl (65-105)
[2023-03-31 16:01] LABS: Glucose Point of Care 135 mg/dl (65-105)
[2023-03-31] MEDS: HEPARIN SOD/D5W 100 UNITS/ML 25,000 UNITS/250 ML BAG 15 UNITS IV CONT (16:11)
[2023-03-31 16:38] LABS: Partial Thromboplastin Time 84.6 SECONDS (22.3-36.8)
[2023-03-31] MEDS: ATORVASTATIN 10 MG TABLET PO (20:29)
[2023-03-31 21:08] LABS: Glucose Point of Care 127 mg/dl (65-105)
[2023-03-31 21:59] LABS: Partial Thromboplastin Time 65.5 SECONDS (22.3-36.8)
--- NOTE | 2023-03-31 23:52 | PCRCNOTE ---
Apnea Link not completed. Pt refused and said she could not tolerate the cannula being in her nose. Will reattempt again tomorrow night.
[2023-04-01] VITALS (23 sets, daily range): BP systolic 118–159; BP diastolic 54–82; PULSE 72–98; RESP 12–18; TEMP 36.3–36.8; O2SAT 94–100
--- NOTE | 2023-04-01 | ECHO_ITS ---
Patient Info Name: Zahraa Thomas Age: 57 years : 1965 Gender: Female Ht: 67 in Wt: 264 lbs BSA: 2.44 m2 HR: 82 bpm BP: 118 / 54 mmHg Technical Quality: Fair Exam Date: 04/01/2023 12:39 PM Exam Location: Echo Lab Exam Room: 310 Patient Status: Inpatient Admit Date: 03/31/2023 Staff Ordering Physician: Richard Mckenna DO Dish Room Worker: Roxanna De Souza RDCS Attending Provider: Mary Sheth DO Referring Physician: Bala OWENS; Exam Type: CA echo dop color flow w con Study Info Indications - NSTEMI Complete two-dimensional, color flow and Doppler transthoracic echocardiogram is performed. Contrast/Agitated Saline Contrast/Ag. Saline: Definity Amount: 2.00 ml Administered By: Roxanna De Souza [facility] Existing IV Access: Yes IV Access Condition: patent with no signs of infiltration Summary 1. Complete two-dimensional, color flow and Doppler transthoracic echocardiogram is performed. 2. Definity contrast administered improved wall motion interpretation. 3. Left ventricular chamber dimension is normal. 4. Left ventricular systolic function is normal, estimated at 60-65%. 5. The left ventricular diastolic function is normal. 6. There is moderate aortic valve sclerosis. 7. No pulmonary hypertension, estimated pulmonary arterial systolic pressure is 24 mmHg. Left Ventricle Definity contrast administered improved wall motion interpretation. Tissue doppler E/e' is not performed. Left ventricular chamber dimension is normal. Left ventricular systolic function is normal, estimated at 60-65%. The left ventricular diastolic function is normal. Right Ventricle Right ventricular chamber dimension is normal. Right ventricular systolic function is normal. Left Atria Left atrial chamber dimension is normal. Right Atria Right atrial chamber dimension is normal. Aortic Valve There is no aortic valve stenosis based on valve area and gradients. The aortic valve is trileaflet. There is moderate aortic valve sclerosis. There is no aortic valve regurgitation. Pulmonic Valve There is no pulmonic regurgitation. Mitral Valve There is no mitral valve stenosis. There is no mitral valve regurgitation. Tricuspid Valve There is no tricuspid valve regurgitation. No pulmonary hypertension, estimated pulmonary arterial systolic pressure is 24 mmHg. Pericardium/Pleural There is no pericardial effusion. Inferior Vena Cava Normal inferior vena cava with >50% collapse upon inspiration consistent with normal right atrial pressure, 5 mmHg. Aorta The aortic root size at the sinus of Valsalva is normal. Left Ventricular Outflow Tract Name Value Normal LVOT 2D LVOT Diameter 2.09 cm LVOT Doppler LVOT Peak Gradient 4 mmHg LVOT Mean Gradient 2 mmHg LVOT VTI 21.64 cm LVOT VTI/AV VTI Ratio 0.67 LVOT Stroke Volume 74.39 ml LVOT CO 14.39 l/min LVOT CI 5.90 L/min/m2 Pulmonic Valve Na
[2023-04-01 04:22] LABS: Basophils Absolute Auto 0.1 K/mm3 (0.0-0.1); Basophils Percent Auto 0.9 % (0.2-1.2); Eosinophils Absolute Auto 0.3 K/mm3 (0-0.3); Eosinophils Percent Auto 4.1 % (0-4.4); Hematocrit 43.2 % (37.0-47.0); Hemoglobin 13.3 g/dL (12.0-15.0); Immature Granulocyte Absolute 0.03 K/mm3 (0.00-0.031); Immature Granulocyte Percent A 0.4 % (0-0.5); Lymphocytes Absolute Auto 3.31 K/mm3 (0.9-3.2); Lymphocytes Percent Auto 43.3 % (18.3-44.2); Mean Corpuscular HGB Conc 30.8 g/dl (32-36); Mean Corpuscular Hemoglobin 27.8 pg (26-34); Mean Corpuscular Volume 90.4 fl (80-100); Mean Platelet Volume 10.4 fl (7.4-10.4); Monocytes Absolute Auto 0.8 K/mm3 (0.1-0.6); Monocytes Percent Auto 9.8 % (2.6-8.5); Neutrophils Absolute Auto 3.2 K/mm3 (1.3-6.7); Neutrophils Percent Auto 41.5 % (45.5-73.1); Platelet Count Result 246 k/mm3 (150-375); Red Blood Count 4.78 M/mm3 (4.2-5.4); Red Cell Distribution Width 13.8 % (11.5-14.5); White Blood Count 7.7 K/mm3 (4.5-10.0)
[2023-04-01 04:41] LABS: Alanine Aminotransferase 26 U/L (6-35); Alkaline Phosphatase 62 U/L (38-126); Anion Gap 9 mmol/L (8-16); Aspartate Amino Transferase 16 U/L (14-36); Bilirubin,Total 0.7 mg/dL (0.2-1.3); Blood Urea Nitrogen 22 mg/dL (7-17); Calcium 9.6 mg/dL (8.4-10.2); Carbon Dioxide 24 mmol/L (22-30); Chloride 104 mmol/L (98-107); Estimated CRCL calculation 85 ml/min; Estimated Glomerular Filt Rate > 60; Glucose 133 mg/dL (65-110); Magnesium 2.1 mg/dL (1.6-2.3); Sodium 137 mmol/L (137-145)
[2023-04-01] MEDS: LEVOTHYROXINE SODIUM 125 MCG TABLET PO (06:25)
--- NOTE | 2023-04-01 07:43 | PM.PNCARD ---
Progress Note: A&P Assessment and Plan (1) Non-ST elevation [place] (NSTEMI): Code(s): I21.4 - Non-ST elevation (NSTEMI) myocardial infarction Status: Acute Assessment and Plan: Chest pain resolved. EKG shows borderline ST depression in anterolat/high lat leads. On aspirin daily. On heparin drip. Started Metoprolol Succinate 25 mg PO BID. Started Atorvastatin 80 mg but she had nausea, changed to 10 mg dose and nausea is mild with that. Obtain echo today. [facility] today with HCG. Will consult them for it. Discuss risks/benefits/alternative to [facility] and she is agreeable to it. (2) Hyperlipidemia: Code(s): E78.5 - Hyperlipidemia, unspecified Status: Acute Assessment and Plan: Started Atorvastatin. (3) Essential (primary) hypertension: Code(s): I10 - Essential (primary) hypertension Status: Acute Assessment and Plan: Stable. (4) Diabetes mellitus type 2, controlled: Qualifiers: Diabetes mellitus intermediate manager insulin use: without intermediate manager use Diabetes mellitus complication status: without complication Qualified Code(s): E11.9 - Type 2 diabetes mellitus without complications Code(s): E11.9 - Type 2 diabetes mellitus without complications Status: Acute Assessment and Plan: Manage as per hospitalist. Subjective Date/time seen: 04/01/23 07:43 Interval history: No more chest pains. No sob. Exam Const: General: cooperative, healthy appearing, comfortable and obese Nutritional Appearance: obese Orientation/consciousness: oriented to person, oriented to place and oriented to time Resp: Auscultation: clear to auscultation bilaterally, no crackles, no rales, no rhonchi and no wheezes Cardio: Rate: regular rate Rhythm: regular rhythm Heart sounds: no murmurs Peripheral pulses: dorsalis pedis present Neuro: General: oriented to person, oriented to place and oriented to time Extrem: Right lower extremity: no edema Left lower extremity: no edema Objective Data Vital Signs Vital Signs: Vital Signs - 24 hr 03/31/23 08:00 03/31/23 09:27 03/31/23 08:00 Temperature 98.2 F Pulse Rate 91 93 85 Respiratory Rate 12 Blood Pressure 134/64 Pulse Oximetry 97 Oxygen Delivery 03/31/23 10:00 03/31/23 12:00 03/31/23 12:00 Temperature 98.2 F Pulse Rate 85 74 78 Respiratory Rate 16 Blood Pressure 125/59 L Pulse Oximetry 96 Oxygen Delivery 03/31/23 16:00 03/31/23 16:00 03/31/23 14:00 Temperature 98.4 F Pulse Rate 86 83 81 Respiratory Rate 12 Blood Pressure 124/56 L Pulse Oximetry 97 Oxygen Delivery 03/31/23 18:00 03/31/23 16:00 03/31/23 20:00 Temperature 97.3 F L Pulse Rate 85 99 Respiratory Rate 16 Blood Pressure 124/62 Pulse Oximetry 95 Oxygen Delivery Room Air 03/31/23 20:29 03/31/23 20:00 03/31/23 20:00 Temperature Pulse Rate 100 90 Respiratory Rate Blood Pressure Pulse Oximetry Oxygen Delivery Room Air 03/31/23 22:00 04/01/23 00:00 04/01/23 00:00 Temperature 98.1 F Pulse Rate 88 82 Respiratory Rate 17 Blood Pressure 126/58 L Pulse Oximetry 97 Oxygen Delivery Room Air 04/01/23 00:00 04/01/23 02:00 04/01/23 04:00 Temperature Pulse Rate 74 88 90 Respiratory Rate Blood Pressure Pulse Oximetry Oxygen Delivery 04/01/23 04:00 04/01/23 04:00 04/01/23 06:00 Temperature 98.0 F Pulse Rate 82 72 Respiratory Rate 16 Blood Pressure 118/54 L Pulse Oximetry 96 Oxygen Delivery Room Air Intake/Output Intake/Output: Intake & Output 03/29/23 03/30/23 03/31/23 04/01/23 23:59 23:59 23:59 23:59 Intake Total 730 Output Total 800 300 Balance -70 -300 Meds/Results Medications: Active Medications Generic Name Dose Route Start Last Admin Trade Name Freq PRN Reason Stop Dose Admin Amlodipine Besylate 5 mg 03/31/23 09:00 03/31/23 09:27 Amlodipine Besylate 5 Mg Tablet PO 5 mg DAILY S
[2023-04-01] MEDS: LOSARTAN POTASSIUM 25 MG TABLET PO (08:29)
[2023-04-01] MEDS: amLODIPine BESYLATE 5 MG TABLET PO (08:29)
[2023-04-01] MEDS: METOPROLOL TARTRATE 25 MG TABLET PO ×2 (08:29→21:33)
[2023-04-01] MEDS: ASPIRIN 81 MG ENTERIC TABLET PO (08:29)
[2023-04-01] MEDS: HEPARIN SOD/D5W 100 UNITS/ML 25,000 UNITS/250 ML BAG 17 UNITS IV CONT (08:29)
[2023-04-01 10:28] LABS: Partial Thromboplastin Time 80.9 SECONDS (22.3-36.8)
[2023-04-01 11:48] LABS: Glucose Point of Care 143 mg/dl (65-105)
[2023-04-01 11:48] LABS: Glucose Point of Care 161 mg/dl (65-105)
--- NOTE | 2023-04-01 12:35 | PM.IMPN ---
Progress Note: A&P Assessment and Plan (1) Non-ST elevation [place] (NSTEMI): Code(s): I21.4 - Non-ST elevation (NSTEMI) myocardial infarction Status: Acute Assessment and Plan: Pending echocardiogram and left heart catheterization 04/01 by Cardiology (2) Essential (primary) hypertension: Code(s): I10 - Essential (primary) hypertension Status: Acute Assessment and Plan: Stable (3) Diabetes mellitus type 2, controlled: Qualifiers: Diabetes mellitus watermelon harvesting supervisor insulin use: without retirement use Diabetes mellitus complication status: without complication Qualified Code(s): E11.9 - Type 2 diabetes mellitus without complications Code(s): E11.9 - Type 2 diabetes mellitus without complications Status: Acute Assessment and Plan: Stable, continue before meals and at night fingerstick glucose (4) Unspecified asthma: Qualifiers: Asthma severity: mild Asthma persistence: intermittent Asthma complication type: uncomplicated Qualified Code(s): J45.20 - Mild intermittent asthma, uncomplicated Code(s): J45.909 - Unspecified asthma, uncomplicated Status: Chronic Assessment and Plan: No affect at this time no difficulty breathing (5) Hyperlipidemia: Qualifiers: Hyperlipidemia type: pure hypercholesterolemia Qualified Code(s): E78.00 - Pure hypercholesterolemia, unspecified Code(s): E78.5 - Hyperlipidemia, unspecified Status: Chronic Assessment and Plan: Continue home meds (6) Morbid obesity with BMI of 45.0-49.9, adult: Code(s): E66.01 - Morbid (severe) obesity due to excess calories; Z68.42 - Body mass index [BMI] 45.0-49.9, adult Status: Chronic Plan Patient refused ApneaLink Subjective Date/time seen: 04/01/23 12:35 Interval history: No further chest pain. Patient is pending echocardiogram and left heart catheterization at 2:30 p.m. today. She has no current complaints. Awaiting further instructions from Cardiology. Review of Systems Review of Systems: 12 systems were reviewed with pertinent positives and negatives per HPI. Except as documented in the HPI, all other systems were reviewed and are negative. Exam Narrative: Weight 132.5 kg BMI 45 point Const: Other: Morbidly obese, no acute distress, appears stated age HENMT: Other: Crowded posterior oropharynx, no oral pharyngeal erythema, head is normocephalic atraumatic Eyes: Other: Pupils are equal and reactive, no scleral icterus, no conjunctival pallor Neck: Other: No JVD, large neck circumference, supple Resp: Other: Clear to auscultation bilaterally, no increased work of breathing Cardio: Other: Regular rate, regular rhythm, 2+ bilateral radial pedal pulses GI: Other: Soft, nontender, obese, no obvious organomegaly Skin: Other: No pallor, non jaundice Neuro: Other: Alert oriented, speech is clear, no facial asymmetry Extrem: Other: No clubbing, cyanosis or edema moves all extremities equally Psych: Other: Appropriate mood and affect, pleasant and cooperative, judgment and insight intact Objective Data Vital Signs Vital Signs: Vital Signs - 24 hr 03/31/23 16:00 03/31/23 16:00 03/31/23 14:00 Temperature 36.9 C Pulse Rate 86 83 81 Respiratory Rate 12 Blood Pressure 124/56 L Pulse Oximetry 97 Oxygen Delivery 03/31/23 18:00 03/31/23 16:00 03/31/23 20:00 Temperature 36.3 C L Pulse Rate 85 99 Respiratory Rate 16 Blood Pressure 124/62 Pulse Oximetry 95 Oxygen Delivery Room Air 03/31/23 20:29 03/31/23 20:00 03/31/23 20:00 Temperature Pulse Rate 100 90 Respiratory Rate Blood Pressure Pulse Oximetry Oxygen Delivery Room Air 03/31/23 22:00 04/01/23 00:00 04/01/23 00:00 Temperature 36.7 C Pulse Rate 88 82 Respiratory Rate 17 Blood Pressure 126/58 L Pu
[2023-04-01] MEDS: PERFLUTREN LIPID MICROSPHERES 1.5 ML VIAL DILUTED TO 10 ML TOTAL VOLUME IV PUSH (13:20)
--- NOTE | 2023-04-01 13:52 | IVDEFINITY ---
Prior to administration of IV Definity the patient was educated on the risks and benefits of the imaging enhancing agent including potential adverse side effects. The patient verbalized understanding. Allergies were verified. No exclusion criteria were identified and at least one of the following inclusion criteria were met: 1) physician request, 2) patient technically difficult to image (per the [place] [employer]ocardi[employer] guidelines of two or more segments not discernable within the apical view), or 3) questionable left ventricular function. ?
--- NOTE | 2023-04-01 14:51 | WPDHPUPDATE1 ---
History and Physical Update Update Date/Time: 04/01/23 14:51 History and Physical has been reviewed, including an updated exam of the patient. There are NO changes in the patient's condition. Risks, benefits, and alternatives have been discussed and questions answered. Patient agrees to proceed with procedure.
--- NOTE | 2023-04-01 14:51 | WPDMODSED ---
Moderate Sedation Note-Pt Data Patient Data Diagnosis: NSTEMI Present Complaint: chest pain Procedure to be performed/Plan: coronary angiogram, possible stenting Allergies Allergy/AdvReac Type Severity Reaction Status Date / Time wheat Allergy Unknown Unknown Verified 01/09/23 10:28 SOY Allergy Unknown Unknown Uncoded 01/09/23 10:28 Home Medications Medication Instructions Recorded Confirmed Type levothyroxine 125 mcg tablet 125 mcg PO DAILY #90 tabs 12/13/22 03/30/23 Rx losartan 25 mg tablet 25 mg PO DAILY #90 tabs 01/04/23 03/30/23 Rx amlodipine 5 mg tablet 5 mg PO DAILY #90 tabs 01/09/23 03/30/23 Rx Current Medications: Active Medications Amlodipine Besylate (Amlodipine Besylate 5 Mg Tablet) 5 mg PO DAILY [facility] Last Admin: 04/01/23 08:29 Dose: 5 mg Aspirin (Aspirin 81 Mg Enteric Tablet) 81 mg PO QAM [facility] Last Admin: 04/01/23 08:29 Dose: 81 mg Atorvastatin Calcium (Atorvastatin 10 Mg Tablet) 10 mg PO QHS [facility] Last Admin: 03/31/23 20:29 Dose: 10 mg Dextrose (Dextrose 50% 25 Gm/50 Ml Syringe) 12.5 gm IV PUSH PRN PRN; Protocol PRN Reason: Hypoglycemia Glucagon (Glucagon For Inj 1 Mg Vial) 1 mg IM PRN PRN; Protocol PRN Reason: Hypoglycemia Glucose (Glucose Oral Gel 15 Gm Of Glucse In 37.5 Gm Tube) 15 gm PO PRN PRN; Protocol PRN Reason: Hypoglycemia Heparin Sodium (Porcine) (Heparin Sodium 5,000 Units/Ml Vial) 4,000 units IV PUSH PRN PRN PRN Reason: aPTT less than 55 seconds Last Admin: 03/31/23 02:07 Dose: 4,000 units Heparin Sodium (Porcine) (Heparin Sodium 5,000 Units/Ml Vial) 3,500 units IV PUSH PRN PRN PRN Reason: aPTT 55 - 70 seconds Last Admin: 03/31/23 22:15 Dose: 3,500 units Heparin Sodium/Dextrose (Heparin Sodium/D5w 100 Units/Ml) 25,000 units in 250 mls @ 17 mls/hr IV CONT .[id number] [facility]; Protocol Last Titration: 04/01/23 10:42 Dose: 1,700 units/hr, 17 mls/hr Dextrose (Dextrose 5% 1,000 Ml) 1,000 mls @ 100 mls/hr IVPB PRN PRN; Protocol PRN Reason: Hypoglycemia Insulin Aspart (Insulin Aspart (*Bkc) 100 Units/Ml) 2 - 5 units SUB-Q TIDWM [facility]; Protocol Last Admin: 04/01/23 11:46 Dose: Not Given Insulin Aspart (Insulin Aspart (*Bkc) 100 Units/Ml) 1 - 2 units SUB-Q HS [facility]; Protocol Last Admin: 03/31/23 21:09 Dose: Not Given Levothyroxine Sodium (Levothyroxine Sodium 125 Mcg Tablet) 125 mcg PO DAILY@0630 [facility] Last Admin: 04/01/23 06:25 Dose: 125 mcg Losartan Potassium (Losartan Potassium 25 Mg Tablet) 25 mg PO DAILY [facility] Last Admin: 04/01/23 08:29 Dose: 25 mg Metoprolol Tartrate (Metoprolol Tartrate 25 Mg Tablet) 25 mg PO Q12HR [facility] Last Admin: 04/01/23 08:29 Dose: 25 mg Nitroglycerin (Nitroglycerin Sl 0.4 Mg Tablet) 0.4 mg SUBLINGUAL Q5MIN PRN PRN Reason: Chest Pain Sedation/Anesthesia: No previous sedation/anesthesia problems (including family history). [facility] Past Medical History Medical History Diabetes mellitus type 2, controlled Essential (primary) hypertension Hyperlipidemia Microalbuminuria due to type 2 diabetes mellitus Morbid obesity with BMI of 45.0-49.9, adult Wheat allergy Surgical History Surgical History History of extraction of renal calculus Hx laparoscopic cholecystectomy on 11/12/22 due to sepsis from acute gangrenous cholecystitis with acute renal failure with concomitant biliary drain placement due to abscess and E coli bacteremia Family History Family History Other Adopted Social History Social History Social History: 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 She has 1 son and is . She briefly used tobacco in minimal amounts in
--- NOTE | 2023-04-01 14:52 | WPDCARDPROC ---
Cardiac Cath Procedure Note Date of procedure:: 04/01/23 Performing physician:: Esa Mays MD date of service April 01, 2023 Indication:: NSTEMI Brief clinical history:: 57-year-old patient with history of obesity hypertension, diabetes presents with chest pain and troponins were found elevated. Procedure Procedure performed:: 1-Moderate sedation that started at 3:17 p.m. and ended at 4:02 p.m. total duration 41 minutes using 2mg of Versed and 50mcg fentanyl. The registered nurse was rios che. 2-Selective left and right coronary angiogram. 3-Left heart catheterization with measurement of LVEDP and measurement of gradient across aortic valve. 4- intravascular ultrasound of the OM1. 5- deployment of a drug-eluting stent resolute 3 x 20 to cover the mid OM 1. 6- deployment of a drug-eluting stent resolute 3 x 8 proximal to the previous stent and an overlapping fashion. 4-Right common femoral arterial angiogram. 5-Deployment of 6 Jordanian Angio-Seal. Sedation/Medication given:: Moderate sedation. Access site:: Right common femoral artery. Estimated blood loss:: 10cc Procedure note:: After informed consent patient was brought in to microbiology lab technician with the was draped and prepped in usual manner. Moderate sedation was given and the right groin was infiltrated using 1% lidocaine. Five Jordanian sheath was obtained using micropuncture needle and the modified Seldinger technique. Selective left coronary angiogram was done using JL4 catheter with the tip of the catheter placed in the left main coronary artery. Selective right coronary angiogram was done using JR4 catheter with the tip of the catheter placed to the right coronary artery. After that 5 Jordanian pigtail catheter was advanced across the aortic valve into the left ventricle with measurement of LVEDP and measurement of gradient across aortic valve. Right common femoral arterial angiogram was done. after that the left main was engaged using 6 Jordanian CLS 3.5 catheter and then BMW wire was advanced to distal OM1 and then balloon angioplasty was done using 3 x 15 balloon under normal pressure for 15 seconds and then intravascular ultrasound was done and then deployment of drug-eluting stent 3 x 22 resolute to mid OM1. Under 13 atmospheres for 13 seconds. After that we noticed some haziness proximally and covered it with a stent 3 x 8 resolute in overlapping fashion. The overlap segment was ballooned with the stent balloon under 14 atmospheres for 15 seconds. Findings:: 1- left coronary artery is a large artery that divides into large LAD, large circumflex artery. Left main isHas minimal irregularities. 2- left anterior descending artery is a large artery that runs and wraps around the apex. ostial 40%, mid diffuse 40%, distal 50%. Small diagonal 1 branch in the mid segment 80% and ostial 80%. 3- leftcircumflex artery is a large artery, large OM1 branch 90% in the mid segment, the ostial segment 30% followed by aneurysmal segment. 4- right coronary artery Dominant, ostial 40%, diffuse minimal irregularities. 5- LVEDP was 10 mm Hgand no gradient across aortic valve. 6- opening arterial pressure was and closing pressure was 7- intravascular ultrasound of the OM1 branch shows that the diameter of the artery about 3.1 mm. 7- right femoral artery angiogram shows no significant disease in the right common femoral artery. Conclusion:: - Successful stenting of mid OM1 using 2 drug eluting stents. - residual disease in small OM1 disease which will be managed medically. - diffuse nonobstructive CAD in the LAD Assessment and Plan Assessment and plan (1) Non-ST elevation [place] (NSTEMI): Code(s): I21.4 - Non-ST elevation (NSTEMI) myocardial infarction Status: Acute Plan continue aspirin and Brilinta. - aggressive risk factor modification for CAD
--- NOTE | 2023-04-01 14:59 | PC.NURSE ---
Pt to [facility] lab via bed. Heparin gtt stopped at time of transfer by [facility] lab nurses.
--- NOTE | 2023-04-01 16:22 | ECG_ITS ---
Measurements Intervals [place] Rate: 91 P: 79 MO: 188 QRS: 56 QRSD: 96 T: 67 QT: 373 QTc: 460 Interpretive Statements SINUS RHYTHM NORMAL ECG COMPARED TO ECG 03/30/2023 20:43:27 NO SIGNIFICANT CHANGES Electronically Signed On 04-01-2023 16:49:42 MANAGER POWER by Richard Mckenna D.O.
[2023-04-01] MEDS: SODIUM CHLORIDE 0.9% IV 1,000 ML 125 ML IV CONT (17:59)
--- NOTE | 2023-04-01 18:00 | PC.NURSE ---
Pt returned from [facility] laboratory via bed. No issues noted.
[2023-04-01 18:13] LABS: Glucose Point of Care 116 mg/dl (65-105)
[2023-04-01 21:29] LABS: Glucose Point of Care 130 mg/dl (65-105)
[2023-04-01] MEDS: TICAGRELOR 90 MG TABLET PO (21:33)
[2023-04-01] MEDS: ATORVASTATIN 10 MG TABLET PO (21:33)
--- NOTE | 2023-04-01 23:19 | PCRCNOTE ---
Pt states she cannot do apnea link or any prongs or ear plugs, or anything attached to her face or body
[2023-04-02] VITALS (8 sets, daily range): BP systolic 126–134; BP diastolic 66–86; PULSE 74–99; RESP 16–18; TEMP 36.3–36.6; O2SAT 97–98
[2023-04-02 05:36] LABS: Basophils Absolute Auto 0.1 K/mm3 (0.0-0.1); Basophils Percent Auto 0.8 % (0.2-1.2); Eosinophils Absolute Auto 0.2 K/mm3 (0-0.3); Eosinophils Percent Auto 2.5 % (0-4.4); Hematocrit 42.5 % (37.0-47.0); Hemoglobin 12.9 g/dL (12.0-15.0); Immature Granulocyte Absolute 0.04 K/mm3 (0.00-0.031); Immature Granulocyte Percent A 0.4 % (0-0.5); Lymphocytes Absolute Auto 2.36 K/mm3 (0.9-3.2); Lymphocytes Percent Auto 25.6 % (18.3-44.2); Mean Corpuscular HGB Conc 30.4 g/dl (32-36); Mean Corpuscular Hemoglobin 27.3 pg (26-34); Mean Platelet Volume 10.8 fl (7.4-10.4); Monocytes Percent Auto 10.6 % (2.6-8.5); Neutrophils Absolute Auto 5.6 K/mm3 (1.3-6.7); Neutrophils Percent Auto 60.1 % (45.5-73.1); Platelet Count Result 267 k/mm3 (150-375); Red Blood Count 4.72 M/mm3 (4.2-5.4); Red Cell Distribution Width 13.5 % (11.5-14.5); White Blood Count 9.2 K/mm3 (4.5-10.0)
[2023-04-02 05:44] LABS: Alanine Aminotransferase 24 U/L (6-35); Alkaline Phosphatase 65 U/L (38-126); Anion Gap 11 mmol/L (8-16); Aspartate Amino Transferase 25 U/L (14-36); Bilirubin,Total 0.8 mg/dL (0.2-1.3); Blood Urea Nitrogen 16 mg/dL (7-17); Calcium 9.2 mg/dL (8.4-10.2); Carbon Dioxide 21 mmol/L (22-30); Chloride 106 mmol/L (98-107); Estimated CRCL calculation 91 ml/min; Estimated Glomerular Filt Rate > 60; Glucose 129 mg/dL (65-110); Magnesium 1.9 mg/dL (1.6-2.3); Potassium 3.6 mmol/L (3.4-5.0); Sodium 138 mmol/L (137-145)
[2023-04-02] MEDS: LEVOTHYROXINE SODIUM 125 MCG TABLET PO (06:54)
--- NOTE | 2023-04-02 07:20 | PM.PNCARD ---
Progress Note: A&P Assessment and Plan (1) Non-ST elevation [place] (NSTEMI): Code(s): I21.4 - Non-ST elevation (NSTEMI) myocardial infarction Status: Acute Assessment and Plan: Chest pain resolved. EKG shows borderline ST depression in anterolat/high lat leads. 04/01/23 Echo: EF 60-65%, mod AV sclerosis. 04/01/23 [facility] with [address]. Figueroa shows LAD ostial 40%, mid 40%, distal 50%, small diag 1 ostial 80%, mid 80%, LCx with large OM1 ostial 30% followed by aneurysmal segment, mid 90%, RCA ostial 40%; PCI with TATE x2 to mid OM1 with good results. On aspirin 81 mg daily, Brilinta 90 mg BID, Metoprolol Tartate 25 mg PO BID, Atorvastatin 10 mg (low dose due to nausea and better tolerated with minimal nausea at this dose). May d/c home from cardiology standpoint and f/u with me in 1 week. Will order phase II cardiac rehab x 12 weeks at that time. (2) Hyperlipidemia: Code(s): E78.5 - Hyperlipidemia, unspecified Status: Acute Assessment and Plan: On Atorvastatin. (3) Essential (primary) hypertension: Code(s): I10 - Essential (primary) hypertension Status: Acute Assessment and Plan: Stable. (4) Diabetes mellitus type 2, controlled: Qualifiers: Diabetes mellitus mcfp insulin use: without mcfp use Diabetes mellitus complication status: without complication Qualified Code(s): E11.9 - Type 2 diabetes mellitus without complications Code(s): E11.9 - Type 2 diabetes mellitus without complications Status: Acute Assessment and Plan: Manage as per hospitalist. Subjective Date/time seen: 04/02/23 07:20 Interval history: Denies chest pain or sob. Right groin access site is without pain/tenderness/hematoma. Exam Const: General: cooperative, healthy appearing, comfortable and obese Nutritional Appearance: obese Orientation/consciousness: oriented to person, oriented to place and oriented to time Resp: Auscultation: clear to auscultation bilaterally, no crackles, no rales, no rhonchi and no wheezes Cardio: Rate: regular rate Rhythm: regular rhythm Heart sounds: no murmurs Peripheral pulses: dorsalis pedis present Neuro: General: oriented to person, oriented to place and oriented to time Extrem: Right lower extremity: no edema Left lower extremity: no edema Objective Data Vital Signs Vital Signs: Vital Signs - 24 hr 04/01/23 07:46 04/01/23 08:29 04/01/23 08:00 Temperature 97.6 F Pulse Rate 79 98 Respiratory Rate 18 Blood Pressure 118/57 L Pulse Oximetry 94 94 Oxygen Delivery Room Air 04/01/23 08:00 04/01/23 10:00 04/01/23 11:43 Temperature 97.4 F L Pulse Rate 97 82 74 Respiratory Rate 18 Blood Pressure 121/55 L Pulse Oximetry 96 Oxygen Delivery 04/01/23 12:00 04/01/23 12:00 04/01/23 14:00 Temperature Pulse Rate 78 89 Respiratory Rate Blood Pressure Pulse Oximetry 96 Oxygen Delivery Room Air 04/01/23 16:30 04/01/23 16:45 04/01/23 17:00 Temperature 98.3 F Pulse Rate 89 87 97 Respiratory Rate 12 12 18 Blood Pressure 157/81 H 159/82 H 153/76 H Pulse Oximetry 98 97 97 Oxygen Delivery Room Air Room Air Room Air 04/01/23 17:15 04/01/23 18:01 04/01/23 18:20 Temperature 97.5 F L 97.7 F Pulse Rate 91 92 93 Respiratory Rate 17 16 18 Blood Pressure 148/73 H 128/68 134/68 Pulse Oximetry 96 99 97 Oxygen Delivery Room Air 04/01/23 18:00 04/01/23 20:16 04/01/23 20:00 Temperature 98.3 F Pulse Rate 95 85 85 Respiratory Rate 18 18 Blood Pressure 133/65 Pulse Oximetry 100 100 Oxygen Delivery Room Air 04/01/23 20:00 04/01/23 21:01 04/01/23 21:33 Temperature 97.9 F Pulse Rate 84 92 94 Respiratory Rate 18 Blood Pressure 133/63 Pulse Oximetry 97 Oxygen Delivery 04/02/23 00:00 04/01/23 22:00 04/02/23 00:00 Temperature 97.8 F Pulse Rate 74 89 74 Respiratory Rate 18 18 Blood Pressure 126/86 Pulse Oximetry 98 98 Oxygen Delivery Room Air
--- NOTE | 2023-04-02 07:39 | PM.DS ---
DS: Admitting Diagnosis Discharge Date 04/02/2023 Admitting Diagnosis NSTEMI, essential primary hypertension, diabetes mellitus type 2 controlled, unspecified asthma, hyperlipidemia, morbid obesity with BMI of 45-49.9 adult DS: Discharge Diagnosis Discharge Diagnosis (1) Non-ST elevation AL (NSTEMI): Code(s): I21.4 - Non-ST elevation (NSTEMI) myocardial infarction Status: Acute (2) Essential (primary) hypertension: Code(s): I10 - Essential (primary) hypertension Status: Acute (3) Diabetes mellitus type 2, controlled: Qualifiers: Diabetes mellitus complication status: without complication Diabetes mellitus extermination inspector insulin use: without jail use Qualified Code(s): E11.9 - Type 2 diabetes mellitus without complications Code(s): E11.9 - Type 2 diabetes mellitus without complications Status: Acute (4) Unspecified asthma: Qualifiers: Asthma complication type: uncomplicated Asthma persistence: intermittent Asthma severity: mild Qualified Code(s): J45.20 - Mild intermittent asthma, uncomplicated Code(s): J45.909 - Unspecified asthma, uncomplicated Status: Chronic (5) Hyperlipidemia: Qualifiers: Hyperlipidemia type: pure hypercholesterolemia Qualified Code(s): E78.00 - Pure hypercholesterolemia, unspecified Code(s): E78.5 - Hyperlipidemia, unspecified Status: Chronic (6) Morbid obesity with BMI of 45.0-49.9, adult: Code(s): E66.01 - Morbid (severe) obesity due to excess calories; Z68.42 - Body mass index [BMI] 45.0-49.9, adult Status: Chronic DS: Summary Hospital Course Reason for hospitalization: chest pain Hospital Course: This is a 57-year-old female patient who was admitted for chest pain with elevating troponins. Patient underwent cardiac catheterization and 2 stents were deployed left circumflex OM 1 and patient had 80% occlusion of OM2 but too small to stent. Patient was started on metoprolol, atorvastatin, aspirin and Brilinta. She was continued on her amlodipine levo thyroxine and losartan. Patient to have follow-up with Dr. [facility] in 1 week and will be referred to cardiac rehab at that time. Patient is awake alert oriented and ready for discharge. Status at Discharge Cognitive/behavioral status at discharge: awake alert oriented and pleasant Functional status at discharge: independent ambulation Overall status at discharge: patient is progressing back to baseline Time Spent with Patient Time attestation: Total time spent providing and/or coordinating discharge services: 35 minutes Time spent: Greater than 30 minutes Exam Narrative: Weight 132.5 kg BMI 45 point Const: Other: Morbidly obese, no acute distress, appears stated age HENMT: Other: Crowded posterior oropharynx, no oral pharyngeal erythema, head is normocephalic atraumatic Eyes: Other: Pupils are equal and reactive, no scleral icterus, no conjunctival pallor Neck: Other: No JVD, large neck circumference, supple Resp: Other: Clear to auscultation bilaterally, no increased work of breathing Cardio: Other: Regular rate, regular rhythm, 2+ bilateral radial pedal pulses GI: Other: Soft, nontender, obese, no obvious organomegaly Skin: Other: No pallor, non jaundice Neuro: Other: Alert oriented, speech is clear, no facial asymmetry Extrem: Other: No clubbing, cyanosis or edema moves all extremities equally Psych: Other: Appropriate mood and affect, pleasant and cooperative, judgment and insight intact DS: Data Data Completed and Pending Completed studies during hospitalization: Chest x-ray, echocardiogram Labs on day of discharge: Labs from last 24 hours 04/02/23 04/01/23 04/01/23 05:01 21:23 18:03 WBC 9.2 RBC 4.72 Hgb 12.9 Hct 42.5 MCV 90.0 MCH 27.3 MCHC 30.4 L RDW 13.5 Plt Count 267 MPV
[2023-04-02 07:52] LABS: Glucose Point of Care 173 mg/dl (65-105)
[2023-04-02] MEDS: ASPIRIN 81 MG ENTERIC TABLET PO (08:20)
[2023-04-02] MEDS: amLODIPine BESYLATE 5 MG TABLET PO (08:20)
[2023-04-02] MEDS: METOPROLOL TARTRATE 25 MG TABLET PO (08:20)
[2023-04-02] MEDS: TICAGRELOR 90 MG TABLET PO (08:21)
[2023-04-02] MEDS: LOSARTAN POTASSIUM 25 MG TABLET PO (08:21)
== END 2023-04-02 10:15 | disposition home or self-care (01) | DRG 322 ==
LOC: ANHED 19:08 → ANHIMU 21:06
PROVIDERS: Emergency Medicine; Internal Medicine Cardiovascular Disease; Admitting Provider Internal Medicine; Emergency Provider Physician Assistant; PCP Family Medicine; Visit Provider Nurse Practitioner
PROC: 4A023N7 Measurement of Cardiac Sampling and Pressure, Left Heart, Percutaneous Approach (ICD-10-PCS; CPT 93452; principal; 2023-04-01 14:30)
PROC: 027035Z Dilation of Coronary Artery, One Artery with Two Drug-eluting Intraluminal Devices, Percutaneous Approach (ICD-10-PCS; 2023-04-01 14:30)
PROC: 027035Z Dilation of Coronary Artery, One Artery with Two Drug-eluting Intraluminal Devices, Percutaneous Approach (ICD-10-PCS; CPT 92928; 2023-04-01 14:30)
PROC: 027035Z Dilation of Coronary Artery, One Artery with Two Drug-eluting Intraluminal Devices, Percutaneous Approach (ICD-10-PCS; 2023-04-01 14:30)
DX: I21.4 Non-ST elevation (NSTEMI) myocardial infarction (principal); Z68.41 Body mass index [BMI] 40.0-44.9, adult; I25.10 Atherosclerotic heart disease of native coronary artery without angina pectoris; I10 Essential (primary) hypertension; E11.9 Type 2 diabetes mellitus without complications; E78.5 Hyperlipidemia, unspecified; E66.01 Morbid (severe) obesity due to excess calories; J45.909 Unspecified asthma, uncomplicated
CPT/HCPCS: 36415; 71045; 80053; 82948; 83036; 83690; 83735; 84484; 85025; 85380; 85610; 85730; 92978; 93005; 93458; 96365; 96366; 99285; A9270; C1725; C1753; C1760; C1769; C1874; C1887; C1894; C8929; C9600; G0269; G0378; J0583; J1644; J2250; J3010; J7030; J7040; Q9957

== ENCOUNTER 2023-05-03 10:19 | Outpatient (CLI) | payer OTHER, SELFPAY ==
[2023-05-03 11:06] LABS: Influenza A QL RT-PCR Negative (Negative); Influenza B QL RT-PCR Negative (Negative); RSV RNA, RT-PCR Negative (Negative); SARS-CoV-2 RNA PCR Negative (Negative)
== END 2023-05-03 10:20 | disposition home or self-care (01) ==
LOC: ANHLAB 10:20
PROVIDERS: PCP Family Medicine; Visit Provider Physician Assistant
DX: R05.9 Cough, unspecified (principal); Z20.822 Contact with and (suspected) exposure to COVID-19
CPT/HCPCS: 87637

== ENCOUNTER 2023-05-13 10:05 | Outpatient (CLI) | payer OTHER, SELFPAY ==
[2023-05-13 10:44] LABS: Alanine Aminotransferase 34 U/L (6-35); Albumin Level 4.1 g/dL (3.5-5.1); Alkaline Phosphatase 127 U/L (38-126); Anion Gap 5 mmol/L (8-16); Aspartate Amino Transferase 20 U/L (14-36); Bilirubin,Total 0.5 mg/dL (0.2-1.3); Blood Urea Nitrogen 37 mg/dL (7-17); Calcium 8.9 mg/dL (8.4-10.2); Carbon Dioxide 26 mmol/L (22-30); Chloride 105 mmol/L (98-107); Cholesterol 207 mg/dL (0-200); Estimated Glomerular Filt Rate > 60; Glucose 194 mg/dL (65-110); HDL Direct 47 mg/dL; Potassium 4.4 mmol/L (3.4-5.0); Sodium 136 mmol/L (137-145); Triglycerides 290 mg/dL (<150)
[2023-05-13 10:55] LABS: LDL Cholesterol Direct 103 mg/dL
== END 2023-05-13 10:06 | disposition home or self-care (01) ==
LOC: ANHLAB 10:06
PROVIDERS: PCP Family Medicine; Visit Provider Internal Medicine Cardiovascular Disease
DX: E78.00 Pure hypercholesterolemia, unspecified (principal)
CPT/HCPCS: 36415; 80053; 80061